=== PATIENT | female | born 1960 | race Caucasian/White ===

== ENCOUNTER 2018-05-29 15:19 | Observation (INO) | payer OTHER ==
[2018-05-29] MEDS ORDERED: DILTIAZEM HCL 5 MG/ML VIAL IV ONE ×3 (15:27→15:47)
[2018-05-29] MEDS ORDERED: ADENOSINE 3 MG/ML DISP.SYRIN IV ONE ×2 (15:36→15:44)
[2018-05-29 15:44] LABS: Hemoglobin 12.9 gm/dL (12.5-16.0); Mean Cell Volume 83.7 fl (78-100); Mean Corpuscular Hemoglobin 27.7 pg (27-31); Mean Corpuscular Hgb Conc 33.1 g/dl (32-36); Mean Platelet Volume 9.5 fl (8-12.5); Neutrophil # 4.1 K/mm3 (1.3-6.0); Neutrophil % 66.4 % (42-75.0); Platelet Count 240 K/mm3 (150-450); Red Blood Count 4.66 M/mm3 (4.2-5.4); Red Cell Distribution Width 13.3 % (11.5-14.0); White Blood Count 6.2 K/mm3 (4.0-10.5)
[2018-05-29] MEDS ORDERED: DILTIAZEM HCL 125 MG in DEXTROSE 5 % IN WATER 100 ML IV PRN ×2 (15:48)
[2018-05-29 15:55] LABS: Prothrombin Time (Patient) 10.6 Seconds (9.0-11.0)
[2018-05-29 15:57] LABS: INR 1.06 INR (0.90-1.10); Partial Thrombolplastin Time 23.8 Seconds (24-32)
--- NOTE | 2018-05-29 15:59 | ERNOTE ---
Syncope ER HPI Stated Complaint: heart issues Time Seen by Provider: 05/29/18 15:26 Source: patient Exam Limitations: no limitations Immunizations: IMMUNIZATION HX Immunizations Up to Date Yes History of Influenza Vaccine Yes Hx Pneumococcal Vaccination No Allergies/Adverse Reactions: Allergies No Known Allergies Allergy (Verified 05/29/18 15:26) Home Medications: HOME MEDICATIONS NK 05/29/18 [Last Taken Unknown] - History of Present Illness Narrative: Patient stated that she went into a rapid heart rate this morning, and while she done this in the past, normally it will cardiovert this time it did not Prior Episodes: Present: multiple episodes today Symptoms prior to episode: Present: none Activity at time of episode: Present: sitting Character of event: Present: no loss of consciousness Location of Injury: Present: none Current Symptoms: Present: shortness of breath Review of Systems - Review of Systems Constitutional: Present: See HPI EYE: Present: no symptoms reported ENT: Present: no symptoms reported Respiratory: Present: shortness of breath Cardiology: Present: See HPI Gastrointestinal/Abdominal: Present: no symptoms reported Genitourinary: Present: no symptoms reported Musculoskeletal: Present: no symptoms reported Skin: Present: no symptoms reported Neurological: Present: no symptoms reported Endocrine: Present: no symptoms reported Hematologic/Lymphatic: Present: no symptoms reported Psych: Present: no symptoms reported Medical History (Last Updated 05/29/18 @ 15:27 by Deanna Weber RN) History of back pain Hx of cervical malignancy Surgical History: Surgical History (Last Updated 05/29/18 @ 15:27 by Deanna Weber RN) Hx of cervical biopsy Family History: Family History (Last Updated 05/29/18 @ 15:27 by Deanna Weber RN) Other No pertinent family history Social History: Preferred Language Nepali Do you have any amish or No cultural preference? Smoking Status Never smoker Alcohol Use none Drug Use none No Social History Section defined Physical Exam - Physical Exam General Appearance: Present: wd/wn, alert, mild distress Head Exam: Present: normal inspection, no evidence of injury Eye Exam: Normal inspection: bilateral, PERRL: bilateral Ears, Nose, Throat: Present: normal ENT inspection, H, normal pharynx Neck: Present: normal inspection, nontender Respiratory: Present: no respiratory distress, normal breath sounds, no accessory muscle use, chest nontender, lungs clear Cardiovascular/Chest: Present: no murmur, normal peripheral pulses, tachycardia Gastrointestinal/Abdominal: Present: normal bowel sounds, nontender, nondistended, soft, no organomegaly Rectal Exam: Present: deferred Back Exam: Present: normal inspection, normal range of motion Extremity Exam: Present: normal inspection, non-tender, no edema, normal range of motion Neurological Exam: Present: alert, oriented, normal mood/affect Skin Exam: Present: normal color, warm/dry Lymphatic Exam: Present: no adenopathy ED Progress - Results and Orders Patient's Lab Results:: I have reviewed the patient's lab results. - Vital Signs Patient's Vital Signs:: I have reviewed the patient's vital signs. Vital Signs: Vital Signs 05/29/18 15:22 05/29/18 15:29 Temperature 37.1 C Pulse Rate 154 H 155 H Respiratory Rate 22 H Blood Pressure 216/112 H 188/106 H O2 Sat by Pulse Oximetry 98 - EKG EKG: other - tachycardia EKG read: Reviewed by me - X-Ray X-Ray #1 X-Ray: chest Interpretation: Reviewed by me - Progress/Reassessment Chief Complaint: Syncopal Episode Progress:: Unchanged Plan - Plan Plan: Despite a variety of medications including 6 and 12 mg of Adenocard and 20 and 25 mg doses of Cardizem IV and a Cardizem drip now running at 20 mg per hour we are only briefly successful to slow down the heart rate enough to reveal the atrial flutter. Patient has no complaint at this time, and while I believe she needs to be cardioverted I would feel more comfortable with an echocardiogram being done. Patient is currently on a heparin drip of 1000 units per hour and was given a 4000 unit bolus. Patient will be transferred to [place] and be admitted with likely cardiology consult there. Departure Clinical Impression: Atrial flutter with rapid ventricular response - Departure Disposition: Short Term Hospital Inpatient Condition: Fair Referrals: Shamar Umana DO [Primary Care Provider] - Critical Care Note - Critical Care Note Total Time (mins): 40 Comments: Adenocard 6 mg and then a second dose at 12 mg and it was a second dose that revealed the underlying atrial flutter with RVR. The Adenocard did not cardiovert the patient back into normal sinus rhythm and she was given 2 doses of Cardizem, first of 20 mg IV second of 25 mg IV and a Cardizem drip was started. We were able to slow the heart rate down with the second dose of Cardizem and a drip was started at 5 mg per hour to begin with. The Cardizem drip was increased incrementally all the way to 20 mg per hour and we are still unable to slow the heart rate down. I discussed the case with Dr. Nugent at [facility]. and patient will be given 600 mg of amiodarone by mouth and transferred to [place]. Patient received a 4000 unit heparin bolus and is currently running heparin at 1000 units per hour.
[2018-05-29] MEDS ORDERED: HEPARIN SODIUM,PORCINE 5,000 UNITS/ML VIAL IV ONE (16:00)
[2018-05-29 16:01] LABS: ALT 34 U/L (19-67); AST 24 U/L (0-48); Albumin * 3.7 gm/dl (3.4-5.0); Alkaline Phosphatase * 392 U/L (50-170); Anion Gap 13.7 mmol/L (6.8-13.8); BUN/Creatinine Ratio 13.7 (9.0-21.6); Blood Urea Nitrogen 7 mg/dL (3-23); Ca. Corrected For Albumin 9.5 mg/dL (8.4-10.2); Calcium * 9.6 mg/dL (7.9-10.9); Carbon Dioxide 26.7 mmol/L (24-32.6); Chloride 105 mmol/L (97-106); Glucose * 117 mg/dL (70-110); Magnesium 1.6 mg/dL (1.2-2.8); Potassium 3.4 mmol/L (3.4-4.6); Sodium 142 mmol/L (132-142); Total Protein 7.1 gm/dL (6.2-8.2); Troponin I Less than 0.017 ng/mL (0.00-0.10)
[2018-05-29] MEDS ORDERED: HEPARIN SODIUM,PORCINE/D5W 25,000 UNITS/500 ML BAG IV PRN (16:01)
[2018-05-29] MEDS ORDERED: AMIODARONE HCL 200 MG TABLET PO ONE (17:30)
[2018-05-29] MEDS ORDERED: DILTIAZEM HCL 240 MG CAP.SR.24H ONE (18:29)
[2018-05-29] MEDS ORDERED: DILTIAZEM HCL 240 MG CAP.SR.24H PO ONE (19:15)
--- NOTE | 2018-05-29 21:38 | HP ---
Chief Complaint - Chief Complaint Date of Service: 05/29/18 Time of Service: 21:21 History of Present Illness: 57 y/o female with PMHx of Degenerative disc disease, Cervical cancer was brought to the ER due to a syncopal episode secondary to tachycardia that started this morning. Peña reports that she went to bed last night completely asymptomatic and woke up feeling well this morning and went about her usual routine without any issues. She then went out side of her apartment building and had a slight coughing spell in reaction to the cold air. Px then reports that shortly after that her heart started racing and she started having palpitations. She denies chest pain but reports dizziness followed by LOC when she went inside the building. When she regained consciousness she found herself in the lobby. Px then called for help and was then brought to the ER. Px reports having a similar episode 5 months ago but her symptoms resolved on their own. She doesn't have a PCP and she hasn't seen a health and wellness advisor for her symptoms. Medical History (Last Updated 05/29/18 @ 15:27 by Deanna Weber RN) History of back pain Hx of cervical malignancy Surgical History: Surgical History (Last Updated 05/29/18 @ 15:27 by Deanna Weber RN) Hx of cervical biopsy Family History: Family History (Last Updated 05/29/18 @ 15:27 by Deanna Weber RN) Other No pertinent family history Social History: Preferred Language Vincentian Do you have any mandaeism or No cultural preference? Smoking Status Never smoker Alcohol Use none Drug Use none No Social History Section defined Peds Patient Hx - Developmental: No Pertinent Hx Peds Patient Hx - Medical: No Pertinent Hx Peds Patient Hx - Cardiac/Respiratory: No Pertinent Hx Peds Patient Hx - Surgical: No Surgical History Patient History - Cancer: Cervical Review Of Systems (GEN) - Review of Systems Generalized/Overall Review: Present: No Symptoms Reported EENTM: Present: No Symptoms Reported Respiratory: Present: No Symptoms Reported Cardiac: Present: Palpitations, Syncope Abdominal: Present: No Symptoms Reported Genitourinary: Present: No Symptoms Reported Musculoskeletal: Present: No Symptoms Reported Neurological: Present: No Symptoms Reported Skin: Present: No Symptoms Reported Endocrine: Present: No Symptoms Reported Immunizations: IMMUNIZATION HX Immunizations Up to Date Yes History of Influenza Vaccine Yes Hx Pneumococcal Vaccination No Allergies/Adverse Reactions: Allergies Allergy/AdvReac Type Severity Reaction Status Date / Time No Known Allergies Allergy Verified 05/29/18 15:26 Home Medications: HOME MEDICATIONS NK 05/29/18 [Last Taken Unknown] Exam - Exam Vital Signs: Vital Signs - Last Taken Temp 37.3 C 05/29/18 17:28 Pulse 115 H 05/29/18 20:51 Resp 19 05/29/18 20:51 BP 123/58 05/29/18 20:51 Pulse Ox 98 05/29/18 20:51 Constitutional: Present: Alert, Oriented x3, Cooperative, Well developed, Well nourished, No distress ENT Exam: Present: normal ENT inspection, hearing grossly normal, pharynx normal, TMs normal Eye Exam: bilateral eye: normal inspection, PERRL, EOMI Neck: Present: non-tender, full range of motion, supple, normal inspection, trachea midline Back Exam: Present: normal inspection, no CVA tenderness, no vertebral tenderness Breasts: Present: Exam deferred Respiratory: Present: chest non-tender, lungs clear, normal breath sounds, no respiratory distress, no accessory muscle use Cardiovascular/Chest: Present: normal peripheral pulses, regular rate, rhythm, no chest tenderness, no gallop, no JVD, systolic murmur Peripheral Pulses: carotid (R): 3+, carotid (L): 3+, femoral (R): 3+, femoral (L): 3+ Abdomen: Present: Normal bowel sounds, soft, nontender, nondistended, no rebound tenderness, no hepatospenomegaly, no masses /Rectal: Present: Exam deferred Extremity: Present: normal range of motion, non-tender, normal inspection, no pedal edema, no calf tenderness Skin Exam: Present: normal color, warm/dry, no cyanosis Lymphatic: Present: no adenopathy Neurologic: Present: materials director II-XII nml as tested, normal cerebellar test, no motor/sensory deficits, alert, normal mood/affect, oriented x 3 Appearance: Present: appropriate appearance, appropriate insight, neat, no memory impairment Eye contact: Present: cooperative, good eye contact, normal speech, avoids eye contact, refused to answer Thoughts: Present: normal thought pattern, no apparent hallucination Diagnostic Studies: Abnormal Lab Results 05/29/18 05/29/18 Range/Units 15:30 15:30 PTT (Tony) 23.8 L (24-32) Seconds Est GFR (Non-Af Amer) 132 H D (60-130) mL/min Random Glucose 117 H (70-110) mg/dL Alkaline Phosphatase 392 H (50-170) U/L Laboratory Results WBC 6.2 K/mm3 (4.0-10.5) 05/29/18 15:30 RBC 4.66 M/mm3 (4.2-5.4) 05/29/18 15:30 Hgb 12.9 gm/dL (12.5-16.0) 05/29/18 15:30 Hct 39.0 % (37.0-47.0) 05/29/18 15:30 MCV 83.7 fl (78-100) 05/29/18 15:30 MCH 27.7 pg (27-31) 05/29/18 15:30 MCHC 33.1 g/dl (32-36) 05/29/18 15:30 RDW 13.3 % (11.5-14.0) 05/29/18 15:30 Plt Count 240 K/mm3 (150-450) 05/29/18 15:30 MPV 9.5 fl (8-12.5) 05/29/18 15:30 Immature Gran % (Auto) 0.30 % (0.001-0.429) 05/29/18 15:30 Immature Gran # (Auto) 0.02 K/mm3 (0.000-0.0310) 05/29/18 15:30 Neutrophils % 66.4 % (42-75.0) 05/29/18 15:30 Lymphocytes % 25.3 % (20-51) 05/29/18 15:30 Monocytes % 7.6 % (0.0-9) 05/29/18 15:30 Eosinophils % 0.2 % (0.0-3.0) 05/29/18 15:30 Basophils % 0.2 % (0.0-1.0) 05/29/18 15:30 Nucleated RBC % 0.0 k/mm3 (0-1) 05/29/18 15:30 Neutrophils # 4.1 K/mm3 (1.3-6.0) 05/29/18 15:30 Lymphocytes # 1.56 k/mm3 (1.5-3.5) 05/29/18 15:30 Monocytes # 0.5 k/mm3 (0.0-1.0) 05/29/18 15:30 Eosinophils # 0.0 k/mm3 (0.0-0.7) 05/29/18 15:30 Absolute Basophils 0.0 k/mm3 (0.0-0.1) 05/29/18 15:30 PT 10.6 Seconds (9.0-11.0) 05/29/18 15:30 INR (Anticoag Therapy) 1.06 INR (0.90-1.10) 05/29/18 15:30 PTT (Garrett) 23.8 Seconds (24-32) L 05/29/18 15:30 Sodium 142 mmol/L (132-142) 05/29/18 15:30 Plasma Sodium 142 mmol/L (130-142) 05/29/18 15:30 Potassium 3.4 mmol/L (3.4-4.6) 05/29/18 15:30 Chloride 105 mmol/L (97-106) 05/29/18 15:30 Carbon Dioxide 26.7 mmol/L (24-32.6) 05/29/18 15:30 Anion Gap 13.7 mmol/L (6.8-13.8) 05/29/18 15:30 BUN 7 mg/dL (3-23) 05/29/18 15:30 Creatinine 0.51 mg/dL (0.4-1.4) 05/29/18 15:30 Est GFR (Non-Af Amer) 132 mL/min (60-130) H D 05/29/18 15:30 BUN/Creatinine Ratio 13.7 (9.0-21.6) 05/29/18 15:30 Random Glucose 117 mg/dL (70-110) H 05/29/18 15:30 Calcium 9.6 mg/dL (7.9-10.9) 05/29/18 15:30 Calcium Adj for Albumin 9.5 mg/dL (8.4-10.2) 05/29/18 15:30 Magnesium 1.6 mg/dL (1.2-2.8) 05/29/18 15:30 Total Bilirubin 1.0 mg/dL (0.0-1.1) 05/29/18 15:30 AST 24 U/L (0-48) 05/29/18 15:30 ALT 34 U/L (19-67) 05/29/18 15:30 Alkaline Phosphatase 392 U/L (50-170) H 05/29/18 15:30 Troponin I Less than 0.017 ng/mL (0.00-0.10) 05/29/18 15:30 Total Protein 7.1 gm/dL (6.2-8.2) 05/29/18 15:30 Albumin 3.7 gm/dl (3.4-5.0) 05/29/18 15:30 Assessment/Plan - Narrative Narrative: Px was treated with IV antiarrhythmics and was placed on IV anticoagulation. She cardioverted to a normal sinus rhythm after treatment by the ER physician, rate control has been achieved with IV meds and PO meds have been initiated. She maintains stable vitals at the moment and is asymptomatic. She will be admitted to observation for close monitoring and cardiology consult in the morning. ENRICO has also been ordered to evaluate for any cardiac abnormalities. - Assessment/Plan (1) Atrial flutter with rapid ventricular response Problem: Acute
--- NOTE | 2018-05-30 11:04 | PN ---
Progess Note - Interim Date: 05/30/18 Time: 10:54 Narrative: 05/30/18 10:55 57 y/o female admitted for Atrial flutter with RVR was evaluated at bedside and was found to be afebrile and in no acute distress. Px reports feeling much better after receiving treatment, her dizziness has subsided and heart is no longer racing. Px also maintains stable vitals and rate control was achieved. 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 Echocardiogram is pending to evaluate EF, cardiac function, and to detect any structural abnormalities. Referral to vocational nurse was requested, and her recommendation was to wait for echo, and refer patient to an senior java web developer for possible ablation, and to prescribed oral anticoagulation upon discharge. We will reevaluate her after the echo for a possible discharge. 05/30/18 11:03
--- NOTE | 2018-05-30 15:12 | DS ---
(1) Atrial flutter with rapid ventricular response Problem: Resolved Description of Stay: 57-year-old female admitted for atrial flutter with rapid ventricular response was evaluated at bedside and was found to be afebrile and in no acute distress. Patient was treated with IV and eventually oral antiarrhythmics, and was placed on a color television console monitor. Follow-up EKG confirms resolution of atrial flutter and total rate control. Cardiology was consulted and echo was performed. Cardiology recommendations were to discharge patient on anticoagulation, beta-natanael for rate control, and refer her to an ground water pump installer. Patient reports feeling better she says her heart is normal longer racing and her dizziness has resolved. Therefore decision to discharge home has been reached and patient will be sent home with the mentioned medication in a referral to an ground water pump installer. She was also instructed to make an appointment with myself since she does not have a PCP. An office follow-up within a week will be performed. Procedures Performed: none Results and Findings: Lab Pending Results 05/29/18 15:30: WBC 6.2, RBC 4.66, Hgb 12.9, Hct 39.0, MCV 83.7, MCH 27.7, MCHC 33.1, RDW 13.3, Plt Count 240, MPV 9.5, Immature Gran % (Auto) 0.30, Immature Gran # (Auto) 0.02, Neutrophils % 66.4, Lymphocytes % 25.3, Monocytes % 7.6, Eosinophils % 0.2, Basophils % 0.2, Nucleated RBC % 0.0, Neutrophils # 4.1, Lymphocytes # 1.56, Monocytes # 0.5, Eosinophils # 0.0, Absolute Basophils 0.0 05/29/18 15:30: PT 10.6, INR (Anticoag Therapy) 1.06, PTT (Tony) 23.8 L 05/29/18 15:30: Sodium 142, Plasma Sodium 142, Potassium 3.4, Chloride 105, Carbon Dioxide 26.7, Anion Gap 13.7, BUN 7, Creatinine 0.51, Est GFR (Non-Af Amer) 132 H D, BUN/Creatinine Ratio 13.7, Random Glucose 117 H, Calcium 9.6, Calcium Adj for Albumin 9.5, Magnesium 1.6, Total Bilirubin 1.0, AST 24, ALT 34, Alkaline Phosphatase 392 H, Troponin I Less than 0.017, Total Protein 7.1, Albumin 3.7 05/29/18 22:01: PTT (Sully) 37.6 H D 05/30/18 00:09: PTT (Tony) 38.2 H 05/30/18 05:15: PTT (Sully) 42.2 H 05/30/18 11:23: PTT (Tony) 46.4 H Discharge Location: Home Disposition: Home self-care Condition: Fair Discharge Activity: Activity as tolerated Discharge Diet: General/regular food Referrals: Lexus Hampton MD [Staff Physician] - Additional Patient Instructions (free text): June 07 at 1:30 PM with at [facility]. Fax records to: [phone]. . [address], [address] [place] [address] Prescriptions (Any new or edited meds): Apixaban [Eliquis] 5 mg PO BID 30 Days #60 tablet Gabapentin 300 mg PO TID 30 Days #90 capsule Metoprolol Tartrate 50 mg PO BID 30 Days #60 tablet Complete Home Medications List: Complete Home Medication List: Apixaban [Eliquis] 5 mg PO BID 30 Days #60 tablet 05/30/18 Gabapentin 300 mg PO TID 30 Days #90 capsule 05/30/18 Metoprolol Tartrate 50 mg PO BID 30 Days #60 tablet 05/30/18
[2018-05-30 16:08] VITALS: BP 140/62
--- NOTE | 2018-05-31 12:11 | ECHO ---
This report is available in the EMR
== END 2018-05-30 16:30 | disposition home or self-care (01) ==
LOC: ER 15:19 → MS 15:19
PROVIDERS: ADMIT Family Medicine; ATTEND Family Medicine
CPT/HCPCS: 36415; 71010; 71045; 80053; 83735; 84484; 85025; 85610; 85730; 93005; 93306; 96365; 96366; 96367; 96375; 96376; 99291; G0378

== ENCOUNTER 2020-01-01 23:10 | Observation (INO) ==
[2020-01-01] MEDS ORDERED: DILTIAZEM HCL 5 MG/ML VIAL IV ONE ×2 (23:19→23:24)
[2020-01-01] MEDS ORDERED: NORMAL SALINE 1,000 ML IV ONE (23:25)
--- NOTE | 2020-01-01 23:27 | ERNOTE ---
Dyspnea - General Presenting Symptoms: shortness of breath Time Seen by Provider: 01/01/20 23:17 Source: patient Exam Limitations: no limitations - Immun/Allergies/Home Medications Immunizations: IMMUNIZATION HX Immunizations Up to Date Yes History of Influenza Vaccine No Hx Pneumococcal Vaccination No Allergies/Adverse Reactions: Allergies No Known Allergies Allergy (Verified 01/01/20 23:18) Home Medications: HOME MEDICATIONS Apixaban [Eliquis] 5 mg PO BID 10/19/18 [Last Taken Unknown] Gabapentin 300 mg PO TID 10/19/18 [Last Taken Unknown] Potassium Chloride [K-Dur] 20 meq PO DAILY #3 tab 11/06/19 [Last Taken Unknown] Furosemide [Lasix] 40 mg PO DAILY 01/02/20 [Last Taken Unknown] Propranolol HCl 80 mg PO TID 01/02/20 [Last Taken Unknown] - History of Present Illness Narrative: States she began to be nauseous yesterday. Today she began vomiting has vomited a number of times throughout the day. She does have chronic A. fib and states she is having palpitations that are fairly usual for her throughout the day today. Upon presentation her heart rate is over 160. Severity: moderate Initiating event: Reports: other - Vomiting and diarrhea Frequency of episodes: Reports: occassional episodes Associated Symptoms-Dyspnea: Reports: palpitations. Denies: fever/chills, chest pain/discomfort Review of Systems - Review of Systems Constitutional: Present: recent illness. Absent: chills ENT: Absent: nose congestion, nasal drainage Respiratory: Present: shortness of breath. Absent: cough Cardiology: Present: palpitations. Absent: chest pain Gastrointestinal/Abdominal: Present: nausea, vomiting, diarrhea Genitourinary: Absent: pain, dysuria Musculoskeletal: Absent: back pain Skin: Absent: rash Neurological: Absent: headache, dizziness/light-headedness Endocrine: Absent: excessive sweating Medical History (Last Reviewed 01/02/20 @ 01:15 by Ananda Alcantar DO) Atrial flutter Hypothyroidism Mild aortic stenosis by prior echocardiogram Pulmonary hypertension Refused influenza vaccine Onset Date: ~06/28/18 History of back pain Hx of cervical malignancy Surgical History: Surgical History (Last Reviewed 01/02/20 @ 01:15 by Ananda Alcantar DO) History of carpal tunnel surgery Hx of cervical biopsy Family History: Family History (Last Reviewed 01/02/20 @ 01:15 by Ananda Alcantar DO) Father Heart disease Other No pertinent family history Social History: (Last Reviewed 01/02/20 @ 01:15 by Ananda Alcantar DO) Social History: Marital status: Highest education level completed: some college, no degree Service: No Tobacco: Smoking Status: Former smoker Alcohol: alcohol intake: never Substance Use: substance use type: does not use Dietary Habits: caffeine: Yes Physical Exam - Physical Exam General Appearance: Present: wd/wn, alert, mild distress Head Exam: Present: normal inspection, no evidence of injury Neck: Present: normal inspection, nontender, supple Respiratory: Present: no respiratory distress, no accessory muscle use, chest nontender, lungs clear Cardiovascular/Chest: Present: no murmur, tachycardia, irregularly irregular Gastrointestinal/Abdominal: Present: normal bowel sounds, nontender, nondistended, soft Back Exam: Present: normal inspection, normal range of motion, no CVA tenderness Extremity Exam: Present: normal inspection, normal range of motion, no edema Neurological Exam: Present: alert, oriented, no motor/sensory deficits Skin Exam: Present: normal color, warm/dry Lymphatic Exam: Present: no adenopathy Progress - Results and Orders Patient's Lab Results:: I have reviewed the patient's lab results. Results and Orders: Laboratory Tests 01/01/20 01/01/20 01/01/20 23:36 23:36 23:36 WBC 8.1 Hgb 10.0 L Hct 32.0 L Plt Count 222 Neutrophils % 76.6 H Sodium 136 Potassium 3.8 Chloride 100 Carbon Dioxide 26.0 BUN 11 D Creatinine 1.06 Random Glucose 120 H Lactic Acid, Venous 1.9 Total Bilirubin 4.3 H AST 24 ALT 13 L Alkaline Phosphatase 269 H Troponin I Less than 0.017 B-Natriuretic Peptide 5894 H - Vital Signs Patient's Vital Signs:: I have reviewed the patient's vital signs. Vital Signs: Vital Signs 01/01/20 23:15 Temperature 38.4 C H Pulse Rate 154 H Respiratory Rate 24 H Blood Pressure 135/86 O2 Sat by Pulse Oximetry 95 - EKG EKG #1 EKG: atrial fibrillation, premature ventricular contraction, nonspecific ST T wave changes EKG read: Interp. by me - X-Ray X-Ray #1 X-Ray: chest Interpretation: Interp. by me X-ray Comments: Cardiomegaly unchanged from previous chest x-ray. No infiltrate or effusion. X-Ray #2 X-Ray: abdomen Interpretation: Interp. by me X-ray Comments: Nonspecific bowel gas pattern. No evidence of obstruction, no free air, no air- fluid levels. - Progress/Reassessment Chief Complaint: Dyspnea Progress Note-Subjective: 01/02/20 01:[address] Camp he agrees with observation admission for diuresis and Cardizem drip. Departure Clinical Impression: Atrial fibrillation with rapid ventricular response CHF (congestive heart failure) Qualifiers: Heart failure type: high output Qualified Code(s): I50.83 - High output heart failure - Departure Disposition: Still a patient Condition: Good
[2020-01-01] MEDS ORDERED: DILTIAZEM HCL 125 MG in DEXTROSE 5 % IN WATER 100 ML IV PRN ×2 (23:28)
[2020-01-01 23:46] LABS: Mean Cell Volume 76.9 fl (78-100); Mean Corpuscular Hgb Conc 31.3 g/dl (32-36); Mean Platelet Volume 9.7 fl (8-12.5); Neutrophil # 6.2 K/mm3 (1.3-6.0); Neutrophil % 76.6 % (42-75.0); Platelet Count 222 K/mm3 (150-450); Red Blood Count 4.16 M/mm3 (4.2-5.4); Red Cell Distribution Width 19.4 % (11.5-14.0); White Blood Count 8.1 K/mm3 (4.0-10.5)
[2020-01-02 00:05] LABS: Troponin I Less than 0.017 ng/mL (0.00-0.10)
[2020-01-02 00:07] LABS: ALT 13 U/L (19-67); AST 24 U/L (0-48); Albumin * 3.4 gm/dl (3.4-5.0); Alkaline Phosphatase * 269 U/L (50-170); Anion Gap 13.8 mmol/L (6.8-13.8); BNP * 5894 pg/mL (5-205); BUN/Creatinine Ratio 10.4 (9.0-21.6); Bilirubin, Total 4.3 mg/dL (0.0-1.1); Blood Urea Nitrogen 11 mg/dL (3-23); Ca. Corrected For Albumin 8.3 mg/dL (8.4-10.2); Calcium * 8.1 mg/dL (7.9-10.9); Chloride 100 mmol/L (97-106); Glucose * 120 mg/dL (70-110); Potassium 3.8 mmol/L (3.4-4.6); Sodium 136 mmol/L (132-142); Total Protein 7.2 gm/dL (6.2-8.2)
[2020-01-02] MEDS ORDERED: DILTIAZEM HCL 125 MG in NORMAL SALINE 100 ML IV PRN (00:15)
[2020-01-02] MEDS ORDERED: FUROSEMIDE 10 MG/ML VIAL IV ONE (01:04)
[2020-01-02] MEDS ORDERED: FUROSEMIDE 40 MG TABLET PO SCH ×2 (09:00→12:00)
[2020-01-02] MEDS: DILTIAZEM HCL 240 MG CAP.SR.24H PO SCH (09:13)
[2020-01-02] MEDS: APIXABAN 5 MG TABLET PO SCH ×2 (09:13→20:06)
[2020-01-02] MEDS: POTASSIUM CHLORIDE 20 MEQ TABLET.SA PO SCH (09:14)
[2020-01-02] MEDS: GABAPENTIN 300 MG CAPSULE PO SCH ×3 (09:15→17:24)
[2020-01-02] MEDS: FERROUS SULFATE 325 MG TABLET PO SCH (09:16)
[2020-01-02 09:39] LABS: Albumin * 3.1 gm/dl (3.4-5.0); Anion Gap 11.1 mmol/L (6.8-13.8); BUN/Creatinine Ratio 11.8 (9.0-21.6); Bilirubin, Total 3.4 mg/dL (0.0-1.1); Ca. Corrected For Albumin 8.8 mg/dL (8.4-10.2); Calcium * 8.4 mg/dL (7.9-10.9); Carbon Dioxide 27.4 mmol/L (24-32.6); Potassium 3.5 mmol/L (3.4-4.6); Total Protein 6.7 gm/dL (6.2-8.2)
[2020-01-02 09:41] LABS: Iron 17 mcg/dL (35-120); Transferrin Sat. (% Sat.) 5 % (15-55)
[2020-01-02 09:55] LABS: Hematocrit 30.3 % (37.0-47.0); Hemoglobin 9.5 gm/dL (12.5-16.0); Mean Cell Volume 76.3 fl (78-100); Mean Corpuscular Hemoglobin 23.9 pg (27-31); Mean Corpuscular Hgb Conc 31.4 g/dl (32-36); Neutrophil # 3.7 K/mm3 (1.3-6.0); Neutrophil % 66.4 % (42-75.0); Platelet Count 181 K/mm3 (150-450); Red Blood Count 3.97 M/mm3 (4.2-5.4); Red Cell Distribution Width 19.1 % (11.5-14.0); White Blood Count 5.6 K/mm3 (4.0-10.5)
[2020-01-02 10:11] LABS: Urine Bilirubin Negative (NEGATIVE); Urine Ketone Negative (NEGATIVE); Urine Nitrite Negative (NEGATIVE); Urine Protein Negative (NEGATIVE)
[2020-01-02 10:20] LABS: Urine Appearance Clear (CLEAR); Urine Bacteria None Seen; Urine Blood 5 /ul (NEGATIVE); Urine Color Yellow; Urine RBC 0-5 /hpf (0-5); Urine WBC 0-5 /hpf (0-5)
--- NOTE | 2020-01-02 11:43 | HP ---
Chief Complaint - Chief Complaint Date of Service: 01/02/20 Time of Service: 08:15 Chief Complaint: Nausea with flulike symptoms, weakness History of Present Illness: Samantha Luong is a 59-year-old female presents with nausea and f lulike symptoms to the emergency room. The work-up found her to be in congestive heart failure and atrial fibrillation with rapid ventricular response with rates in the 160s. She was treated with IV Cardizem in ER which slowed her heart rate down into the 90s and lower 100s but she continues in atrial fibrillation which is chronic for her. She takes Eliquis daily to prophylax clots. She has a history of iron deficiency. She denies abdominal pain. Her admission liver enzymes however show an elevated alkaline phosphatase of 268 and a bilirubin of 4.6. Urinalysis shows 2+ urobilinogen. The CBC shows hemoglobin is 10 g with an MCV of 76% and a RDW that is elevated. This is consistent with her previous diagnosis of iron deficiency anemia. She is not taking iron supplements. This morning she is feeling quite a lot better and feels that her heart is no longer racing and pounding. Her nausea is better. She ate breakfast this morning before I saw her liver enzymes. I have ordered an ultrasound to be done and they plan to do that later this afternoon some 6 hours after she ate last. Her heart rate has stayed down in the upper 90s and lower 100s. Her blood pressure systolic was 100 this morning. She had fever on admission to ER and has had low-grade temperature elevations here in the 37.7 to 37.9 degree range. The nidus of the infection if there is 1 is unknown at this time. Urinalysis other than urobilinogen was normal and no culture was set up. Blood culture was drawn in the emergency room but will be a couple of days before we have preliminary results. She has no respiratory symptoms. On exam today her neck veins are still distended and her HJR is positive at 90 degrees and there is still some pitting edema in the pretibial areas bilaterally. I will diurese her some more today with IV furosemide. I am changing her to oral Cardizem and away from propranolol. She will be moved back to general medical floor room this afternoon and placed on telemetry. I will be keeping her another night. Antibiotics will not be started unless we find a focus of infection. And auscultation of the heart and lungs I do not hear any murmurs or rubs. She does have bibasilar rales. Medical History (Last Reviewed 01/02/20 @ 01:15 by Ananda Alcantar DO) Atrial flutter Hypothyroidism Mild aortic stenosis by prior echocardiogram Pulmonary hypertension Refused influenza vaccine Onset Date: ~06/28/18 History of back pain Hx of cervical malignancy Surgical History: Surgical History (Last Reviewed 01/02/20 @ 01:15 by Ananda Alcantar DO) History of carpal tunnel surgery Hx of cervical biopsy Family History: Family History (Last Reviewed 01/02/20 @ 01:15 by Ananda Alcantar DO) Father Heart disease Other No pertinent family history Social History: (Last Reviewed 01/02/20 @ 01:15 by Ananda Alcantar DO) Social History: Marital status: Highest education level completed: some college, no degree Service: No Tobacco: Smoking Status: Former smoker Alcohol: alcohol intake: never Substance Use: substance use type: does not use Dietary Habits: caffeine: Yes Review Of Systems (GEN) - Review of Systems Generalized/Overall Review: Present: Weakness, Chills, Fever, Malaise EENTM: Present: No Symptoms Reported Respiratory: Present: Shortness of Breath Cardiac: Present: Palpitations Abdominal: Present: No Symptoms Reported Genitourinary: Present: No Symptoms Reported Musculoskeletal: Present: No Symptoms Reported Neurological: Present: No Symptoms Reported Skin: Present: No Symptoms Reported Endocrine: Present: No Symptoms Reported Immunizations: IMMUNIZATION HX Immunizations Up to Date Yes History of Influenza Vaccine No Hx Pneumococcal Vaccination No Allergies/Adverse Reactions: Allergies Allergy/AdvReac Type Severity Reaction Status Date / Time No Known Allergies Allergy Verified 01/01/20 23:18 Home Medications: HOME MEDICATIONS Apixaban [Eliquis] 5 mg PO BID 10/19/18 [Last Taken Unknown] Gabapentin 300 mg PO TID 10/19/18 [Last Taken Unknown] Potassium Chloride [K-Dur] 20 meq PO DAILY #3 tab 11/06/19 [Last Taken Unknown] Furosemide [Lasix] 40 mg PO DAILY 01/02/20 [Last Taken Unknown] Propranolol HCl 80 mg PO TID 01/02/20 [Last Taken Unknown] Exam - Exam Vital Signs: Vital Signs - Last Taken Temp 37.8 C 01/02/20 10:54 Pulse 82 01/02/20 10:54 Resp 19 01/02/20 10:54 BP 100/60 01/02/20 10:54 Pulse Ox 96 01/02/20 10:54 Constitutional: Present: Alert, Oriented x3, Cooperative, Well developed, Well n ourished, Mild distress ENT Exam: Present: normal ENT inspection, hearing grossly normal, pharynx normal, TMs normal Eye Exam: bilateral eye: normal inspection, PERRL, EOMI Neck: Present: non-tender, full range of motion, supple, normal inspection Back Exam: Present: normal inspection, no CVA tenderness, no vertebral tenderness Breasts: Present: Exam deferred Respiratory: Present: decreased breath sounds, rales - Bibasilar, expiration (prolonged) Cardiovascular/Chest: Present: normal peripheral pulses, no chest tenderness, JVD, irregularly irregular, edema Peripheral Pulses: carotid (R): 2+, carotid (L): 2+, radial (R): 2+, radial (L): 2+ Abdomen: Present: Normal bowel sounds, soft, nontender, nondistended, no rebound tenderness, no hepatospenomegaly, no masses, negative Ortega sign /Rectal: Present: Exam deferred Extremity: Present: normal range of motion, non-tender, lower extremity edema, pedal edema Skin Exam: Present: pallor Lymphatic: Present: no adenopathy Neurologic: Present: chief 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 II-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 nml as tested, normal cerebellar test, no motor/sensory deficits, alert, normal mood/affect, oriented x 3, motor weakness Appearance: Present: appropriate appearance, appropriate insight, neat, no memory impairment Eye contact: Present: cooperative, good eye contact, normal speech, avoids eye contact Thoughts: Present: normal thought pattern, no apparent hallucination Diagnostic Studies: Abnormal Lab Results 01/01/20 01/01/20 01/02/20 Range/Units 23:36 23:36 09:00 RBC 4.16 L 3.97 L (4.2-5.4) M/mm3 Hgb 10.0 L 9.5 L (12.5-16.0) gm/dL Hct 32.0 L 30.3 L (37.0-47.0) % MCV 76.9 L 76.3 L (78-100) fl MCH 24.0 L 23.9 L (27-31) pg MCHC 31.3 L 31.4 L (32-36) g/dl RDW 19.4 H 19.1 H (11.5-14.0) % Neutrophils % 76.6 H (42-75.0) % Lymphocytes % 9.2 L 18.2 L (20-51) % Monocytes % 13.4 H 14.6 H (0.0-9) % Neutrophils # 6.2 H (1.3-6.0) K/mm3 Lymphocytes # 0.74 L 1.02 L (1.5-3.5) k/mm3 Monocytes # 1.1 H (0.0-1.0) k/mm3 Percent Retic 1.9 H (0.4-1.8) % Immature Retic Fraction 35.6 H (3.0-15.9) % Retic Hgb Content 24.3 L (29-35) pg Est GFR (Non-Af Amer) 56 L (60-130) mL/min Random Glucose 120 H (70-110) mg/dL Calcium Adj for Albumin 8.3 L (8.4-10.2) mg/dL Iron (35-120) mcg/dL Transferrin % Sat (15-55) % Total Bilirubin 4.3 H (0.0-1.1) mg/dL ALT 13 L (19-67) U/L Alkaline Phosphatase 269 H (50-170) U/L B-Natriuretic Peptide 5894 H (5-205) pg/mL Albumin (3.4-5.0) gm/dl Urine Blood (NEGATIVE) /ul Urine Urobilinogen (NORMAL) EU/dl 01/02/20 01/02/20 01/02/20 Range/Units 09:00 09:00 10:04 RBC (4.2-5.4) M/mm3 Hgb (12.5-16.0) gm/dL Hct (37.0-47.0) % MCV (78-100) fl MCH (27-31) pg MCHC (32-36) g/dl RDW (11.5-14.0) % Neutrophils % (42-75.0) % Lymphocytes % (20-51) % Monocytes % (0.0-9) % Neutrophils # (1.3-6.0) K/mm3 Lymphocytes # (1.5-3.5) k/mm3 Monocytes # (0.0-1.0) k/mm3 Percent Retic (0.4-1.8) % Immature Retic Fraction (3.0-15.9) % Retic Hgb Content (29-35) pg Est GFR (Non-Af Amer) 59 L (60-130) mL/min Random Glucose (70-110) mg/dL Calcium Adj for Albumin (8.4-10.2) mg/dL Iron 17 L (35-120) mcg/dL Transferrin % Sat 5 L (15-55) % Total Bilirubin 3.4 H (0.0-1.1) mg/dL ALT 11 L (19-67) U/L Alkaline Phosphatase 230 H (50-170) U/L B-Natriuretic Peptide (5-205) pg/mL Albumin 3.1 L (3.4-5.0) gm/dl Urine Blood 5 H (NEGATIVE) /ul Urine Urobilinogen 2.0 H (NORMAL) EU/dl Laboratory Results WBC 5.6 K/mm3 (4.0-10.5) D 01/02/20 09:00 RBC 3.97 M/mm3 (4.2-5.4) L 01/02/20 09:00 Hgb 9.5 gm/dL (12.5-16.0) L 01/02/20 09:00 Hct 30.3 % (37.0-47.0) L 01/02/20 09:00 MCV 76.3 fl (78-100) L 01/02/20 09:00 MCH 23.9 pg (27-31) L 01/02/20 09:00 MCHC 31.4 g/dl (32-36) L 01/02/20 09:00 RDW 19.1 % (11.5-14.0) H 01/02/20 09:00 Plt Count 181 K/mm3 (150-450) 01/02/20 09:00 MPV 10.0 fl (8-12.5) 01/02/20 09:00 Immature Gran % (Auto) 0.40 % (0.001-0.429) 01/02/20 09:00 Immature Gran # (Auto) 0.02 K/mm3 (0.000-0.0310) 01/02/20 09:00 Neutrophils % 66.4 % (42-75.0) 01/02/20 09:00 Lymphocytes % 18.2 % (20-51) L 01/02/20 09:00 Monocytes % 14.6 % (0.0-9) H 01/02/20 09:00 Eosinophils % 0.0 % (0.0-3.0) 01/02/20 09:00 Basophils % 0.4 % (0.0-1.0) 01/02/20 09:00 Nucleated RBC % 0.0 k/mm3 (0-1) 01/02/20 09:00 Neutrophils # 3.7 K/mm3 (1.3-6.0) 01/02/20 09:00 Lymphocytes # 1.02 k/mm3 (1.5-3.5) L 01/02/20 09:00 Monocytes # 0.8 k/mm3 (0.0-1.0) 01/02/20 09:00 Eosinophils # 0.0 k/mm3 (0.0-0.7) 01/02/20 09:00 Absolute Basophils 0.0 k/mm3 (0.0-0.1) 01/02/20 09:00 Absolute Retic 0.0738 01/02/20 09:00 Percent Retic 1.9 % (0.4-1.8) H 01/02/20 09:00 Immature Retic Fraction 35.6 % (3.0-15.9) H 01/02/20 09:00 Retic Hgb Content 24.3 pg (29-35) L 01/02/20 09:00 Sodium 135 mmol/L (132-142) 01/02/20 09:00 Plasma Sodium 135 mmol/L (130-142) 01/02/20 09:00 Potassium 3.5 mmol/L (3.4-4.6) 01/02/20 09:00 Chloride 100 mmol/L (97-106) 01/02/20 09:00 Carbon Dioxide 27.4 mmol/L (24-32.6) 01/02/20 09:00 Anion Gap 11.1 mmol/L (6.8-13.8) 01/02/20 09:00 BUN 12 mg/dL (3-23) 01/02/20 09:00 Creatinine 1.02 mg/dL (0.4-1.4) 01/02/20 09:00 Est GFR (Non-Af Amer) 59 mL/min (60-130) L 01/02/20 09:00 BUN/Creatinine Ratio 11.8 (9.0-21.6) 01/02/20 09:00 Random Glucose 104 mg/dL (70-110) 01/02/20 09:00 Lactic Acid, Venous 1.9 mmol/L (0.4-2.0) 01/01/20 23:36 Calcium 8.4 mg/dL (7.9-10.9) 01/02/20 09:00 Calcium Adj for Albumin 8.8 mg/dL (8.4-10.2) 01/02/20 09:00 Iron 17 mcg/dL (35-120) L 01/02/20 09:00 TIBC 376 mcg/dL (260-445) 01/02/20 09:00 Transferrin % Sat 5 % (15-55) L 01/02/20 09:00 Ferritin 41 ng/mL (8-252) 01/02/20 09:00 Total Bilirubin 3.4 mg/dL (0.0-1.1) H 01/02/20 09:00 AST 20 U/L (0-48) 01/02/20 09:00 ALT 11 U/L (19-67) L 01/02/20 09:00 Alkaline Phosphatase 230 U/L (50-170) H 01/02/20 09:00 Troponin I Less than 0.017 ng/mL (0.00-0.10) 01/01/20 23:36 B-Natriuretic Peptide 5894 pg/mL (5-205) H 01/01/20 23:36 Total Protein 6.7 gm/dL (6.2-8.2) 01/02/20 09:00 Albumin 3.1 gm/dl (3.4-5.0) L 01/02/20 09:00 Urine Color Yellow 01/02/20 10:04 Urine Appearance Clear (CLEAR) 01/02/20 10:04 Urine pH 6.0 pH (5.0-7.0) 01/02/20 10:04 Ur Specific [place] 1.020 SP.GR. (1.005-1.010) 01/02/20 10:04 Urine Protein Negative mg/dL (NEGATIVE) 01/02/20 10:04 Urine Glucose (UA) Negative mg/dL (NEGATIVE) 01/02/20 10:04 Urine Ketones Negative mg/dL (NEGATIVE) 01/02/20 10:04 Urine Blood 5 /ul (NEGATIVE) H 01/02/20 10:04 Urine Nitrate Negative (NEGATIVE) 01/02/20 10:04 Urine Bilirubin Negative mg/dl (NEGATIVE) 01/02/20 10:04 Urine Urobilinogen 2.0 EU/dl (NORMAL) H 01/02/20 10:04 Ur Leukocyte Esterase Negative /ul (NEGATIVE) 01/02/20 10:04 Urine RBC 0-5 /hpf (0-5) 01/02/20 10:04 Urine WBC 0-5 /hpf (0-5) 01/02/20 10:04 Ur Epithelial Cells 0-5 /hpf (0-5) 01/02/20 10:04 Urine Bacteria None seen (NONE) 01/02/20 10:04 SARS-CoV-2 (PCR) Not detected (ND) 01/02/20 01:30 Assessment/Plan - Narrative Narrative: 1. Diurese 2. DC IV Cardizem drip and start p.o. Cardizem 3. Abdominal ultrasound to evaluate the cause of her elevated bilirubin and alkaline phosphatase. No transaminases are normal. 4. She had an echocardiogram by Dr. Reid about a month ago with an ejection fraction of 35 to 40% 5. Repeat EKG this morning shows atrial fibrillation but with controlled ventricular response rate and no evidence of ischemia 6. Start iron replacement therapy after iron studies are drawn. 7. Consider general surgical consultation. - Assessment/Plan (1) Atrial fibrillation with rapid ventricular response Problem: Acute (2) CHF (congestive heart failure) Problem: Acute Qualifiers: Heart failure type: high output Qualified Code(s): I50.83 - High output heart failure (3) Abnormal liver function tests Problem: Acute (4) Iron deficiency anemia Problem: Chronic Qualifiers: Iron deficiency anemia type: unspecified iron deficiency Qualified Code(s): D50.9 - Iron deficiency anemia, unspecified (5) Febrile illness Problem: Acute
[2020-01-02] MEDS ORDERED: ACETAMINOPHEN 500 MG TABLET PO PRN (21:57)
[2020-01-03 06:19] LABS: Hematocrit 28.9 % (37.0-47.0); Hemoglobin 8.9 gm/dL (12.5-16.0); Mean Cell Volume 75.7 fl (78-100); Mean Corpuscular Hemoglobin 23.3 pg (27-31); Mean Corpuscular Hgb Conc 30.8 g/dl (32-36); Mean Platelet Volume 9.2 fl (8-12.5); Neutrophil % 55.4 % (42-75.0); Platelet Count 175 K/mm3 (150-450); Red Blood Count 3.82 M/mm3 (4.2-5.4); Red Cell Distribution Width 19.5 % (11.5-14.0); White Blood Count 7.3 K/mm3 (4.0-10.5)
[2020-01-03 06:36] LABS: Albumin * 3.2 gm/dl (3.4-5.0); Anion Gap 9.9 mmol/L (6.8-13.8); BUN/Creatinine Ratio 17.3 (9.0-21.6); Bilirubin, Total 2.4 mg/dL (0.0-1.1); Ca. Corrected For Albumin 8.7 mg/dL (8.4-10.2); Calcium * 8.4 mg/dL (7.9-10.9); Carbon Dioxide 27.4 mmol/L (24-32.6); Potassium 3.3 mmol/L (3.4-4.6); Total Protein 6.7 gm/dL (6.2-8.2)
[2020-01-03] MEDS: APIXABAN 5 MG TABLET PO SCH (09:20)
[2020-01-03] MEDS: GABAPENTIN 300 MG CAPSULE PO SCH ×3 (09:20→15:06)
[2020-01-03] MEDS: POTASSIUM CHLORIDE 20 MEQ TABLET.SA PO SCH (09:21)
[2020-01-03] MEDS: FERROUS SULFATE 325 MG TABLET PO SCH (09:21)
[2020-01-03] MEDS: DILTIAZEM HCL 240 MG CAP.SR.24H PO SCH (09:21)
--- NOTE | 2020-01-03 12:27 | DS ---
(1) Atrial fibrillation with rapid ventricular response Problem: Acute (2) CHF (congestive heart failure) Problem: Acute Qualifiers: Heart failure type: high output Qualified Code(s): I50.83 - High output heart failure (3) Abnormal liver function tests Problem: Acute (4) Iron deficiency anemia Problem: Chronic Qualifiers: Iron deficiency anemia type: unspecified iron deficiency Qualified Code(s): D50.9 - Iron deficiency anemia, unspecified (5) Febrile illness Problem: Acute (6) Ascites Problem: Acute Date of Discharge:: 01/03/20 Hospital Course: Samantha Luong is a 59-year-old female admitted to ER with congestive heart failure. She has been diuresed and is doing much better and is no longer fluid overloaded. She has a history of ischemic cardiomyopathy. She had a echo about a month ago showing EF of 35 to 40%. While here her labs showed bilirubin elevated at 4.5 and the alkaline phosphatase was high at 286. Her CBC showed initial hemoglobin of 10 g with an MCV of 75 and an elevated RDW. These were all suggestive of iron deficiency anemia which she has had most of her life. However she is not on treatment for that. I started her on iron replacement therapy. Her hemoglobin has continued to drop and the hemoglobin has dropped yesterday to 9.2 g and today is 8.6 g. She is asymptomatic with his anemia. Because of the abnormal liver function studies I did an ultrasound of the abdomen which shows a mild to moderate amount of ascites, thickened gallbladder wall with sludge in the neck. The common bile duct, hepatic duct were unremarkable. The urinalysis revealed 2+ urobilinogen as well. Her transaminases are normal. She states she drank some alcohol in her youth and younger years but has not for many years. The ultrasound shows the liver to be smaller and not uniform in echogenicity. This is suggestive of cirrhosis and given her social history I would favor more MCKAY. Further evaluation will need to be done on an outpatient basis. She will be discharged to home. She will need weekly hemograms. I will arrange for a CT of the abdomen with contrast. And I will notify her primary care provider Heeln Flannery. Procedures Performed: none Results and Findings: Pending Mircobiology Results 01/02/20 00:06 Blood Blood Culture - Preliminary NO GROWTH 24 HOURS 01/01/20 23:36 Blood Blood Culture - Preliminary NO GROWTH 24 HOURS Lab Pending Results 01/01/20 23:36: WBC 8.1, RBC 4.16 L, Hgb 10.0 L, Hct 32.0 L, MCV 76.9 L, MCH 24.0 L, MCHC 31.3 L, RDW 19.4 H, Plt Count 222, MPV 9.7, Immature Gran % (Auto) 0.40, Immature Gran # (Auto) 0.03, Neutrophils % 76.6 H, Lymphocytes % 9.2 L, Monocytes % 13.4 H, Eosinophils % 0.0, Basophils % 0.4, Nucleated RBC % 0.0, Neutrophils # 6.2 H, Lymphocytes # 0.74 L, Monocytes # 1.1 H, Eosinophils # 0.0, Absolute Basophils 0.0 01/01/20 23:36: Sodium 136, Plasma Sodium 136, Potassium 3.8, Chloride 100, Carbon Dioxide 26.0, Anion Gap 13.8, BUN 11 D, Creatinine 1.06, Est GFR (Non-Af Amer) 56 L, BUN/Creatinine Ratio 10.4, Random Glucose 120 H, Calcium 8.1, Calcium Adj for Albumin 8.3 L, Total Bilirubin 4.3 H, AST 24, ALT 13 L, Alkaline Phosphatase 269 H, Troponin I Less than 0.017, B-Natriuretic Peptide 5894 H, Total Protein 7.2, Albumin 3.4 01/01/20 23:36: Lactic Acid, Venous 1.9 01/02/20 01:30: SARS-CoV-2 (PCR) Not detected 01/02/20 09:00: WBC 5.6 D, RBC 3.97 L, Hgb 9.5 L, Hct 30.3 L, MCV 76.3 L, MCH 23.9 L, MCHC 31.4 L, RDW 19.1 H, Plt Count 181, MPV 10.0, Immature Gran % (Auto) 0.40, Immature Gran # (Auto) 0.02, Neutrophils % 66.4, Lymphocytes % 18.2 L, Monocytes % 14.6 H, Eosinophils % 0.0, Basophils % 0.4, Nucleated RBC % 0.0, Neutrophils # 3.7, Lymphocytes # 1.02 L, Monocytes # 0.8, Eosinophils # 0.0, Absolute Basophils 0.0, Absolute Retic 0.0738, Percent Retic 1.9 H, Immature Retic Fraction 35.6 H, Retic Hgb Content 24.3 L 01/02/20 09:00: Sodium 135, Plasma Sodium 135, Potassium 3.5, Chloride 100, Carbon Dioxide 27.4, Anion Gap 11.1, BUN 12, Creatinine 1.02, Est GFR (Non-Af Amer) 59 L, BUN/Creatinine Ratio 11.8, Random Glucose 104, Calcium 8.4, Calcium Adj for Albumin 8.8, Ferritin 41, Total Bilirubin 3.4 H, AST 20, ALT 11 L, Alkaline Phosphatase 230 H, Total Protein 6.7, Albumin 3.1 L 01/02/20 09:00: Iron 17 L, TIBC 376, Transferrin % Sat 5 L 01/02/20 09:00: Troponin I Less than 0.017 01/02/20 10:04: Urine Color Yellow, Urine Appearance Clear, Urine pH 6.0, Ur Specific [place] 1.020, Urine Protein Negative, Urine Glucose (UA) Negative, Urine Ketones Negative, Urine Blood 5 H, Urine Nitrate Negative, Urine Bilirubin Negative, Urine Urobilinogen 2.0 H, Ur Leukocyte Esterase Negative, Urine RBC 0- 5, Urine WBC 0-5, Ur Epithelial Cells 0-5, Urine Bacteria None seen 01/03/20 06:10: WBC 7.3 D, RBC 3.82 L, Hgb 8.9 L, Hct 28.9 L, MCV 75.7 L, MCH 23.3 L, MCHC 30.8 L, RDW 19.5 H, Plt Count 175, MPV 9.2, Immature Gran % (Auto) 0.30, Immature Gran # (Auto) 0.02, Neutrophils % 55.4, Lymphocytes % 24.8, Monocytes % 18.7 H, Eosinophils % 0.4, Basophils % 0.4, Nucleated RBC % 0.0, Neutrophils # 4.0, Lymphocytes # 1.80, Monocytes # 1.4 H, Eosinophils # 0.0, Absolute Basophils 0.0 01/03/20 06:10: Sodium 133, Plasma Sodium 133, Potassium 3.3 L, Chloride 99, Carbon Dioxide 27.4, Anion Gap 9.9, BUN 17, Creatinine 0.98, Est GFR (Non-Af Amer) 62, BUN/Creatinine Ratio 17.3, Random Glucose 102, Calcium 8.4, Calcium Adj for Albumin 8.7, Total Bilirubin 2.4 H, AST 21, ALT 13 L, Alkaline Phosphatase 227 H, Total Protein 6.7, Albumin 3.2 L Discharge Location: Home Disposition: Home self-care Condition: Fair Face to Face Encounter completed per [facility] Guidelines: No Discharge Activity: Activity as tolerated Discharge Diet: General/regular food Referrals: Vanessa Flannery APRN [Primary Care Provider] - Complete Home Medications List: Complete Home Medication List: Apixaban [Eliquis] 5 mg PO BID 10/19/18 Gabapentin 300 mg PO TID 10/19/18 Potassium Chloride [K-Dur] 20 meq PO DAILY #3 tab 11/06/19 Furosemide [Lasix] 40 mg PO DAILY 01/02/20 Propranolol HCl 80 mg PO TID 01/02/20 Acetaminophen [Tylenol] 500 mg PO Q4H PRN tablet 01/03/20 Diltiazem HCl [Cardizem Cd] 240 mg PO Q24H #30 cap.sr.24h 01/03/20 Ferrous Sulfate 325 mg PO DAILY #100 tab 01/03/20
[2020-01-03 13:05] VITALS: BP 110/67
== END 2020-01-03 13:45 | disposition home or self-care (01) | DRG 292 ==
LOC: SCU 23:10 → ER 23:10 → SCU 01-02 02:38 → MS 01-02 11:48
PROVIDERS: ADMIT Family Medicine; ATTEND Family Medicine
CPT/HCPCS: 36415; 71010; 71045; 74019; 74020; 76700; 80053; 81001; 82728; 83519; 83540; 83550; 83605; 83880; 84484; 85025; 85045; 87040; 93005; 94760; 96365; 96366; 96375; 99285; C9803; G0378

== ENCOUNTER 2020-09-03 18:57 | Inpatient (IN) ==
[2020-09-03] MEDS ORDERED: DILTIAZEM HCL 5 MG/ML VIAL IV ONE (19:25)
[2020-09-03] MEDS ORDERED: PIPERACILLIN SODIUM/TAZOBACTAM 3.375 GM in DEXTROSE 5 % IN WATER 100 ML IV ONE ×2 (19:25)
--- NOTE | 2020-09-03 19:37 | ERNOTE ---
<Jeramy Martinez - Last Filed: 09/03/20 19:30> Integumentary HPI - Narrative Date of Service: 09/03/20 - General Presenting Symptoms: other - lleg pain Time Seen by Provider: 09/03/20 19:16 Source: patient Exam Limitations: clinical condition - Immun/Allergies/Home Medications Immunizations: IMMUNIZATION HX Immunizations Up to Date No History of Influenza Vaccine No Hx Pneumococcal Vaccination No Allergies/Adverse Reactions: Allergies Allergy/AdvReac Type Severity Reaction Status Date / Time No Known Allergies Allergy Verified 09/03/20 19:14 Home Medications: HOME MEDICATIONS Apixaban [Eliquis] 5 mg PO BID 10/19/18 [Last Taken Unknown] Gabapentin 300 mg PO TID 10/19/18 [Last Taken Unknown] Furosemide [Lasix] 20 mg PO DAILY 01/02/20 [Last Taken Unknown] Acetaminophen [Tylenol] 500 mg PO Q4H PRN tab 01/03/20 [Last Taken Unknown] Propafenone HCl [Propafenone HCl ER] 325 mg PO DAILY 07/24/20 [Last Taken Unknown] Ferrous Sulfate 650 mg PO DAILY 09/03/20 [Last Taken Unknown] Loratadine 10 mg PO DAILY 09/03/20 [Last Taken Unknown] Potassium Chloride [K-Dur] 40 meq PO DAILY 09/03/20 [Last Taken Unknown] Propranolol HCl [Inderal LA] 160 mg PO BID 09/03/20 [Last Taken Unknown] - History of Present Illness Narrative: patient presents to the ED for pain in her legs. She arrives by EMS. She denies acute worsening. She apparently has had leg problems for a while, gradually worsening. Called EMS, EMS noted a fib RVR. She denies CP or SOB. pain in both legs that she will not rate for me. No trauma. No abdominal pain. When I ask her questions she will look away from me and at times not answer making Hx difficult. Location: Reports: other - bilateral LE Quality: Reports: painful Severity: other - will not rate for me Exposure: Reports: no cause identified Modifying Factors - (Improves): Reports: nothing Modifying Factors - (Worsens): Reports: nothing Associated Symptoms: Denies: hives Prior Treatment: Denies: recently seen, currently on antibiotics Review of Systems - Narrative Narrative: unable to obtain in entirety d/t patient condition Medical History (Last Reviewed 09/03/20 @ 19:33 by Jeramy Martinez MD) Atrial flutter Congestive heart failure (CHF) Hypothyroidism Mild aortic stenosis by prior echocardiogram Pulmonary hypertension Refused influenza vaccine Onset Date: ~06/28/18 History of back pain Hx of cervical malignancy Surgical History: Surgical History (Last Reviewed 09/03/20 @ 19:33 by Jeramy Martinez MD) History of carpal tunnel surgery Hx of cervical biopsy Family History: Family History (Last Reviewed 09/03/20 @ 19:33 by Jeramy Martinez MD) Father Heart disease Other No pertinent family history Social History: (Last Reviewed 09/03/20 @ 19:33 by Jeramy Martinez MD) Social History: Marital status: Highest level of school completed/degree received: some college, no degree Service: No Tobacco: Smoking Status: Former smoker Alcohol: alcohol intake: never Substance Use: substance use type: does not use Dietary Habits: caffeine: Yes Physical Exam - Physical Exam General Appearance: Present: alert, other - chronnically ill appearing but in no distress Head Exam: Present: normal inspection, no evidence of injury Eye Exam: Normal inspection: bilateral, PERRL: bilateral Ears, Nose, Throat: Present: normal ENT inspection Neck: Present: normal inspection Respiratory: Present: no respiratory distress, lungs clear Cardiovascular/Chest: Present: tachycardia, irregularly irregular Gastrointestinal/Abdominal: Present: normal bowel sounds, nontender, soft Back Exam: Absent: CVA tenderness (R), CVA tenderness (L) Extremity Exam: Present: other - Bilateral LE erythema below the knees with large necrotic eschar right low leg and areas of drainage left, this appears c/w acute cellulitis. Neurological Exam: Present: alert, other - generalized weaness, no clear acute unilateral focal motor defciits but difficult exam Skin Exam: Present: normal color, warm/dry, other - lower extremity changes as noted above Progress - Results and Orders Patient's Lab Results:: I have reviewed the patient's lab results. - Vital Signs Patient's Vital Signs:: I have reviewed the patient's vital signs. Vital Signs: Vital Signs 09/03/20 19:03 Temperature 37.1 C Pulse Rate 157 H Respiratory Rate 18 Blood Pressure 112/70 O2 Sat by Pulse Oximetry 96 - EKG EKG #1 EKG: atrial fibrillation EKG read: Interp. by me EKG Comments: A fib RVR rate 157. Likely rate related changes, no STEMI clearly noted. Cannot r/o ischemic changes. - Progress/Reassessment Chief Complaint: Cellulitis - Transfer of Care Physician Sign Out: Jeramy Martinez Receiving Physician: Ananda Alcantar Pending Results: Labs, X-ray results Departure Clinical Impression: Atrial fibrillation with RVR, Hyponatremia, Hyperkalemia Cellulitis Qualifiers: Site of cellulitis: extremity Site of cellulitis of extremity: lower extremity Laterality: unspecified laterality Qualified Code(s): L03.119 - Cellulitis of unspecified part of limb - Departure Disposition: Still a patient Condition: Fair <Ananda Alcantar - Last Filed: 09/03/20 23:44> Integumentary HPI - Immun/Allergies/Home Medications Immunizations: IMMUNIZATION HX Immunizations Up to Date No History of Influenza Vaccine No Hx Pneumococcal Vaccination No Medical History (Last Reviewed 09/03/20 @ 19:33 by Jeramy Martinez MD) Atrial flutter Congestive heart failure (CHF) Hypothyroidism Mild aortic stenosis by prior echocardiogram Pulmonary hypertension Refused influenza vaccine Onset Date: ~06/28/18 History of back pain Hx of cervical malignancy Surgical History: Surgical History (Last Reviewed 09/03/20 @ 19:33 by Jeramy Martinez MD) History of carpal tunnel surgery Hx of cervical biopsy Family History: Family History (Last Reviewed 09/03/20 @ 19:33 by Jeramy Martinez MD) Father Heart disease Other No pertinent family history Social History: (Last Reviewed 09/03/20 @ 19:33 by Jeramy Martinez MD) Social History: Marital status: Highest level of school completed/degree received: some college, no degree Service: No Tobacco: Smoking Status: Former smoker Alcohol: alcohol intake: never Substance Use: substance use type: does not use Dietary Habits: caffeine: Yes Progress - Results and Orders Patient's Lab Results:: I have reviewed the patient's lab results. - Vital Signs Patient's Vital Signs:: I have reviewed the patient's vital signs. Vital Signs: Vital Signs 09/03/20 19:03 09/03/20 19:31 09/03/20 19:44 Temperature 37.1 C Pulse Rate 157 H 150 H 110 H Respiratory Rate 18 14 Blood Pressure 112/70 100/77 105/66 O2 Sat by Pulse Oximetry 96 96 09/03/20 20:02 09/03/20 20:14 09/03/20 20:25 Temperature 36.7 C Pulse Rate 108 H 108 H 110 H Respiratory Rate 16 20 Blood Pressure 122/81 125/84 111/76 O2 Sat by Pulse Oximetry 97 93 09/03/20 20:40 09/03/20 21:04 Temperature Pulse Rate 110 H 110 H Respiratory Rate 16 Blood Pressure 116/72 115/79 O2 Sat by Pulse Oximetry 94 - X-Ray X-Ray #1 X-Ray: chest Interpretation: Reviewed by me X-ray Comments: IMPRESSION: Cardiac silhouette enlargement with interstitial pulmonary edema and mild pulmonary vascular congestion. No consolidation. Left midlung linear atelectasis versus scar. Old granulomatous disease. Electronically signed by David Nails D.O.. - Progress/Reassessment Progress:: Improved Progress Note-Subjective: 09/03/20 21:[address] Guerra he agrees with admission to SCU for A. fib with RVR cellulitis hyponatremia and hyperkalemia Ananda Alcantar DO, FAAFP
[2020-09-03] MEDS ORDERED: DILTIAZEM HCL 125 MG in DEXTROSE 5 % IN WATER 100 ML IV PRN ×2 (19:42)
[2020-09-03] MEDS: NORMAL SALINE 1,000 ML IV PRN (19:43)
[2020-09-03 19:58] LABS: Hemoglobin 14.2 gm/dL (12.5-16.0); Mean Cell Volume 94.4 fl (78-100); Mean Corpuscular Hemoglobin 30.5 pg (27-31); Mean Corpuscular Hgb Conc 32.3 g/dl (32-36); Mean Platelet Volume 8.2 fl (8-12.5); Platelet Count 346 K/mm3 (150-450); Red Blood Count 4.66 M/mm3 (4.2-5.4); Red Cell Distribution Width 18.1 % (11.5-14.0); White Blood Count 12.7 K/mm3 (4.0-10.5)
[2020-09-03 20:10] LABS: Total Cells Counted 100
[2020-09-03 20:22] LABS: Urine Bilirubin Negative (NEGATIVE); Urine Blood Negative /ul (NEGATIVE); Urine Ketone Negative (NEGATIVE); Urine Nitrite Negative (NEGATIVE); Urine Protein 15 mg/dL (NEGATIVE); Urine Specific Gravity 1.025 SP.GR. (1.005-1.010); Urine pH 5.5 pH (5.0-7.0)
[2020-09-03 20:27] LABS: Lymphocyte 11 % (20-51); Monocyte 14 % (0-9); Neutrophil 75 % (42-75); Neutrophil # 9.5 K/mm3 (1.3-6.0)
[2020-09-03 20:28] LABS: Platelet Estimate Normal (NORMAL); RBC Morphology Normal (NORMAL)
[2020-09-03 20:32] LABS: Urine Appearance Clear (CLEAR); Urine Color Yellow
[2020-09-03 20:33] LABS: Urine Bacteria None Seen; Urine RBC None Seen /hpf (0-5); Urine WBC None Seen /hpf (0-5)
[2020-09-03 20:45] LABS: ALT 23 U/L (19-67); AST 25 U/L (0-48); Albumin * 2.8 gm/dl (3.4-5.0); Alkaline Phosphatase * 435 U/L (50-170); Anion Gap 16.3 mmol/L (6.8-13.8); BNP * 6644 pg/mL (5-205); Bilirubin, Total 2.1 mg/dL (0.0-1.1); Blood Urea Nitrogen 44 mg/dL (3-23); Ca. Corrected For Albumin 9.9 mg/dL (8.4-10.2); Calcium * 9.3 mg/dL (7.9-10.9); Carbon Dioxide 22.6 mmol/L (24-32.6); Chloride 92 mmol/L (97-106); Glucose * 128 mg/dL (70-110); Potassium 5.9 mmol/L (3.4-4.6); Sodium 125 mmol/L (132-142); TSH * 0.419 uIU/mL (0.358-3.74); Total Protein 8.7 gm/dL (6.2-8.2); Troponin I Less than 0.017 ng/mL (0.00-0.10)
[2020-09-03] MEDS ORDERED: FUROSEMIDE 10 MG/ML VIAL IV ONE (20:57)
[2020-09-03] MEDS ORDERED: SODIUM POLYSTYRENE SULFON/SORB 15 G/60 ML ORAL.SUSP PO ONE (23:16)
--- NOTE | 2020-09-04 00:10 | HP ---
Chief Complaint - Chief Complaint Date of Service: 09/04/20 Time of Service: 00:18 Medical History (Last Reviewed 09/03/20 @ 19:33 by Jeramy Martinez MD) Atrial flutter Congestive heart failure (CHF) Hypothyroidism Mild aortic stenosis by prior echocardiogram Pulmonary hypertension Refused influenza vaccine Onset Date: ~06/28/18 History of back pain Hx of cervical malignancy Surgical History: Surgical History (Last Reviewed 09/03/20 @ 19:33 by Jeramy Martinez MD) History of carpal tunnel surgery Hx of cervical biopsy Family History: Family History (Last Reviewed 09/03/20 @ 19:33 by Jeramy Martinez MD) Father Heart disease Other No pertinent family history Social History: (Last Reviewed 09/03/20 @ 19:33 by Jeramy Martinez MD) Social History: Marital status: Highest level of school completed/degree received: some college, no degree Service: No Tobacco: Smoking Status: Former smoker Alcohol: alcohol intake: never Substance Use: substance use type: does not use Dietary Habits: caffeine: Yes Immunizations: IMMUNIZATION HX Immunizations Up to Date No History of Influenza Vaccine No Hx Pneumococcal Vaccination No Allergies/Adverse Reactions: Allergies Allergy/AdvReac Type Severity Reaction Status Date / Time No Known Allergies Allergy Verified 09/03/20 19:14 Home Medications: HOME MEDICATIONS Apixaban [Eliquis] 5 mg PO BID 10/19/18 [Last Taken Unknown] Gabapentin 300 mg PO TID 10/19/18 [Last Taken Unknown] Furosemide [Lasix] 20 mg PO DAILY 01/02/20 [Last Taken Unknown] Acetaminophen [Tylenol] 500 mg PO Q4H PRN tab 01/03/20 [Last Taken Unknown] Propafenone HCl [Propafenone HCl ER] 325 mg PO DAILY 07/24/20 [Last Taken Unknown] Ferrous Sulfate 650 mg PO DAILY 09/03/20 [Last Taken Unknown] Loratadine 10 mg PO DAILY 09/03/20 [Last Taken Unknown] Potassium Chloride [K-Dur] 40 meq PO DAILY 09/03/20 [Last Taken Unknown] Propranolol HCl [Inderal LA] 160 mg PO BID 09/03/20 [Last Taken Unknown] Exam - Exam Vital Signs: Vital Signs - Last Taken Temp 37.2 C 09/03/20 22:41 Pulse 109 H 09/03/20 23:29 Resp 13 09/03/20 23:29 BP 109/71 09/03/20 23:29 Pulse Ox 95 09/03/20 23:29 Diagnostic Studies: Abnormal Lab Results 09/03/20 09/03/20 09/03/20 Range/Units 19:45 19:45 19:50 WBC 12.7 H (4.0-10.5) K/mm3 RDW 18.1 H (11.5-14.0) % Lymphocytes % (Manual) 11 L (20-51) % Monocytes % (Manual) 14 H (0-9) % Neutrophils # (Manual) 9.5 H (1.3-6.0) K/mm3 Lymphocytes # (Manual) 1.4 L (1.5-3.5) k/mm3 Monocytes # (Manual) 1.8 H (0.0-1.0) k/mm3 Sodium 125 L (132-142) mmol/L Plasma Sodium 125 L (130-142) mmol/L Potassium 5.9 H D (3.4-4.6) mmol/L Chloride 92 L (97-106) mmol/L Carbon Dioxide 22.6 L (24-32.6) mmol/L Anion Gap 16.3 H (6.8-13.8) mmol/L BUN 44 H (3-23) mg/dL Creatinine 1.76 H (0.4-1.4) mg/dL Est GFR (Non-Af Amer) 31 L (60-130) mL/min BUN/Creatinine Ratio 25.0 H (9.0-21.6) Random Glucose 128 H (70-110) mg/dL Total Bilirubin 2.1 H (0.0-1.1) mg/dL Alkaline Phosphatase 435 H (50-170) U/L B-Natriuretic Peptide 6644 H (5-205) pg/mL Total Protein 8.7 H (6.2-8.2) gm/dL Albumin 2.8 L (3.4-5.0) gm/dl Urine Protein 15 H (NEGATIVE) mg/dL Urine Urobilinogen 2.0 H (NORMAL) EU/dl Laboratory Results WBC 12.7 K/mm3 (4.0-10.5) H 09/03/20 19:45 RBC 4.66 M/mm3 (4.2-5.4) 09/03/20 19:45 Hgb 14.2 gm/dL (12.5-16.0) 09/03/20 19:45 Hct 44.0 % (37.0-47.0) 09/03/20 19:45 MCV 94.4 fl (78-100) 09/03/20 19:45 MCH 30.5 pg (27-31) 09/03/20 19:45 MCHC 32.3 g/dl (32-36) 09/03/20 19:45 RDW 18.1 % (11.5-14.0) H 09/03/20 19:45 Plt Count 346 K/mm3 (150-450) 09/03/20 19:45 MPV 8.2 fl (8-12.5) 09/03/20 19:45 Neutrophils % (Manual) 75 % (42-75) 09/03/20 19:45 Lymphocytes % (Manual) 11 % (20-51) L 09/03/20 19:45 Monocytes % (Manual) 14 % (0-9) H 09/03/20 19:45 Neutrophils # (Manual) 9.5 K/mm3 (1.3-6.0) H 09/03/20 19:45 Lymphocytes # (Manual) 1.4 k/mm3 (1.5-3.5) L 09/03/20 19:45 Monocytes # (Manual) 1.8 k/mm3 (0.0-1.0) H 09/03/20 19:45 Platelet Estimate Normal (NORMAL) 09/03/20 19:45 RBC Morphology Normal (NORMAL) 09/03/20 19:45 Sodium 125 mmol/L (132-142) L 09/03/20 19:45 Plasma Sodium 125 mmol/L (130-142) L 09/03/20 19:45 Potassium 5.9 mmol/L (3.4-4.6) H D 09/03/20 19:45 Chloride 92 mmol/L (97-106) L 09/03/20 19:45 Carbon Dioxide 22.6 mmol/L (24-32.6) L 09/03/20 19:45 Anion Gap 16.3 mmol/L (6.8-13.8) H 09/03/20 19:45 BUN 44 mg/dL (3-23) H 09/03/20 19:45 Creatinine 1.76 mg/dL (0.4-1.4) H 09/03/20 19:45 Est GFR (Non-Af Amer) 31 mL/min (60-130) L 09/03/20 19:45 BUN/Creatinine Ratio 25.0 (9.0-21.6) H 09/03/20 19:45 Random Glucose 128 mg/dL (70-110) H 09/03/20 19:45 Lactic Acid, Venous 1.9 mmol/L (0.4-2.0) 09/03/20 19:45 Calcium 9.3 mg/dL (7.9-10.9) 09/03/20 19:45 Calcium Adj for Albumin 9.9 mg/dL (8.4-10.2) 09/03/20 19:45 Total Bilirubin 2.1 mg/dL (0.0-1.1) H 09/03/20 19:45 AST 25 U/L (0-48) 09/03/20 19:45 ALT 23 U/L (19-67) 09/03/20 19:45 Alkaline Phosphatase 435 U/L (50-170) H 09/03/20 19:45 Troponin I Less than 0.017 ng/mL (0.00-0.10) 09/03/20 19:45 B-Natriuretic Peptide 6644 pg/mL (5-205) H 09/03/20 19:45 Total Protein 8.7 gm/dL (6.2-8.2) H 09/03/20 19:45 Albumin 2.8 gm/dl (3.4-5.0) L 09/03/20 19:45 TSH 0.419 uIU/mL (0.358-3.74) 09/03/20 19:45 Urine Color Yellow 09/03/20 19:50 Urine Appearance Clear (CLEAR) 09/03/20 19:50 Urine pH 5.5 pH (5.0-7.0) 09/03/20 19:50 Ur Specific [place] 1.025 SP.GR. (1.005-1.010) 09/03/20 19:50 Urine Protein 15 mg/dL (NEGATIVE) H 09/03/20 19:50 Urine Glucose (UA) Negative mg/dL (NEGATIVE) 09/03/20 19:50 Urine Ketones Negative mg/dL (NEGATIVE) 09/03/20 19:50 Urine Blood Negative /ul (NEGATIVE) 09/03/20 19:50 Urine Nitrate Negative (NEGATIVE) 09/03/20 19:50 Urine Bilirubin Negative mg/dl (NEGATIVE) 09/03/20 19:50 Urine Urobilinogen 2.0 EU/dl (NORMAL) H 09/03/20 19:50 Ur Leukocyte Esterase Negative /ul (NEGATIVE) 09/03/20 19:50 Urine RBC None seen /hpf (0-5) 09/03/20 19:50 Urine WBC None seen /hpf (0-5) 09/03/20 19:50 Ur Epithelial Cells 0-5 /hpf (0-5) 09/03/20 19:50 Urine Bacteria None seen (NONE) 09/03/20 19:50 Urine Culture Comments No culture indicated 09/03/20 19:50 SARS-CoV-2 (PCR) Not detected (NotDetected) 09/03/20 21:31
--- NOTE | 2020-09-04 00:23 | HP ---
Chief Complaint - Chief Complaint Date of Service: 09/04/20 Time of Service: 00:22 Chief Complaint: Leg pain History of Present Illness: 60-year-old female with history of A. fib and RVR currently on Inderal, Eliquis, and propafenone presented to the hospital with very tender lower extremities. Patient is alert to self but otherwise refusing to answer questions. In the ER her initial work-up showed her to have a white count of 12.7 with no shift. Her chemistry panel was abnormal with a sodium of 125, potassium of 5.9, chloride of 92, and a small gap at 16.3, and elevated creatinine of 1.76 with a GFR 31. Baseline creatinine is around 1 so this is a significant acute kidney injury. Patient also had an elevated BNP at 6644 which is higher than her normal which usually is between 4768-3244. Patient was found to be in A. fib with RVR and started on Cardizem in the ER. She was also started on Zosyn for lower extremity bilateral cellulitis with pressure sores. The extent of her sores were not disclosed to me at the time of admission. Upon examining the patient, she was found to have significant cellulitic infection bilaterally with severe pressure sores with large eschars covering them. Purulent discharge from both of them. Patient's afebrile. Patient states he has not taken the medicine with a several not of her head. Otherwise refusing to answer most questions. Very concerned about her lower extremity cellulitis/pressure sores/eschar formation on her bilateral legs ( left much worse than right). Patient currently on Cardizem at 10 after a bolus received in the ER. Her rate right now is between 100-110s. Otherwise she is hemodynamically stable and not requiring oxygen. Lastly patient does have what appears to be a right-sided bacterial conjunctivitis with significant drainage and group around her eye. Again she refuses answer any questions about this. Patient is on apixaban for anticoagulation, 5 mg twice daily. Patient was given Kayexalate in the ER for hyperkalemia. Patient initially was thought to be dry before BMP came back and received some IV fluid but due to her elevated BNP she also received a dose of Lasix once it came back. Her electrolytes need to be monitored closely. Patient refuses to answer if she is in pain or not though she does wince when her legs are examined. Medical History (Last Reviewed 09/03/20 @ 19:33 by Jeramy Martinez MD) Atrial flutter Congestive heart failure (CHF) Hypothyroidism Mild aortic stenosis by prior echocardiogram Pulmonary hypertension Refused influenza vaccine Onset Date: ~06/28/18 History of back pain Hx of cervical malignancy Surgical History: Surgical History (Last Reviewed 09/03/20 @ 19:33 by Jeramy Martinez MD) History of carpal tunnel surgery Hx of cervical biopsy Family History: Family History (Last Reviewed 09/03/20 @ 19:33 by Jeramy Martinez MD) Father Heart disease Other No pertinent family history Social History: (Last Reviewed 09/03/20 @ 19:33 by Jeramy Martinez MD) Social History: Marital status: Highest level of school completed/degree received: some college, no degree Service: No Tobacco: Smoking Status: Former smoker Alcohol: alcohol intake: never Substance Use: substance use type: does not use Dietary Habits: caffeine: Yes Review Of Systems (GEN) - Review of Systems Additional Comments: Review of systems not obtained due to patient's unwillingness to vocalize her answers. All she will agree with is not her head when asked if her legs hurt. She will respond to cardiac questions, respiratory questions, or whether she had fevers or chills. Immunizations: IMMUNIZATION HX Immunizations Up to Date No History of Influenza Vaccine No Hx Pneumococcal Vaccination No Allergies/Adverse Reactions: Allergies Allergy/AdvReac Type Severity Reaction Status Date / Time No Known Allergies Allergy Verified 09/03/20 19:14 Home Medications: HOME MEDICATIONS Apixaban [Eliquis] 5 mg PO BID 10/19/18 [Last Taken Unknown] Gabapentin 300 mg PO TID 10/19/18 [Last Taken Unknown] Furosemide [Lasix] 20 mg PO DAILY 01/02/20 [Last Taken Unknown] Acetaminophen [Tylenol] 500 mg PO Q4H PRN tab 01/03/20 [Last Taken Unknown] Propafenone HCl [Propafenone HCl ER] 325 mg PO DAILY 07/24/20 [Last Taken Unknown] Ferrous Sulfate 650 mg PO DAILY 09/03/20 [Last Taken Unknown] Loratadine 10 mg PO DAILY 09/03/20 [Last Taken Unknown] Potassium Chloride [K-Dur] 40 meq PO DAILY 09/03/20 [Last Taken Unknown] Propranolol HCl [Inderal LA] 160 mg PO BID 09/03/20 [Last Taken Unknown] Exam - Exam Vital Signs: Vital Signs - Last Taken Temp 37.2 C 09/03/20 22:41 Pulse 117 H 09/03/20 23:51 Resp 18 09/03/20 23:51 BP 107/63 09/03/20 23:51 Pulse Ox 96 09/03/20 23:51 Constitutional: Present: Alert, Moderate distress, Somnolent, Overweight. Absent: Oriented x3 - X1, patient no self ENT Exam: Present: hearing grossly normal. Absent: hard of hearing Eye Exam: bilateral eye: EOMI, right eye: other - Purulent drainage and crust Neck: Present: non-tender, supple Respiratory: Present: lungs clear, normal breath sounds Cardiovascular/Chest: Present: systolic murmur - 2+/6, irregularly irregular Peripheral Pulses: dorsalis-pedis (R): 1+ - Difficult to palpate due to infection, dorsalis-pedis (L): 1+ - Difficult to palpate due to infection Abdomen: Present: nontender, rigidity. Absent: nondistended, guarding Extremity: Present: lower extremity edema Skin Exam: Present: other - Significant erythema circumferential around both legs up to her knees with some edema. Significant open sores with eschar formation bilaterally with purulent drainage. Foul-smelling. Toes are discolored and much darker than the rest of her coloration Appearance: Present: disheveled Eye contact: Present: avoids eye contact, refused to answer Diagnostic Studies: Abnormal Lab Results 09/03/20 09/03/20 09/03/20 Range/Units 19:45 19:45 19:50 WBC 12.7 H (4.0-10.5) K/mm3 RDW 18.1 H (11.5-14.0) % Lymphocytes % (Manual) 11 L (20-51) % Monocytes % (Manual) 14 H (0-9) % Neutrophils # (Manual) 9.5 H (1.3-6.0) K/mm3 Lymphocytes # (Manual) 1.4 L (1.5-3.5) k/mm3 Monocytes # (Manual) 1.8 H (0.0-1.0) k/mm3 Sodium 125 L (132-142) mmol/L Plasma Sodium 125 L (130-142) mmol/L Potassium 5.9 H D (3.4-4.6) mmol/L Chloride 92 L (97-106) mmol/L Carbon Dioxide 22.6 L (24-32.6) mmol/L Anion Gap 16.3 H (6.8-13.8) mmol/L BUN 44 H (3-23) mg/dL Creatinine 1.76 H (0.4-1.4) mg/dL Est GFR (Non-Af Amer) 31 L (60-130) mL/min BUN/Creatinine Ratio 25.0 H (9.0-21.6) Random Glucose 128 H (70-110) mg/dL Total Bilirubin 2.1 H (0.0-1.1) mg/dL Alkaline Phosphatase 435 H (50-170) U/L B-Natriuretic Peptide 6644 H (5-205) pg/mL Total Protein 8.7 H (6.2-8.2) gm/dL Albumin 2.8 L (3.4-5.0) gm/dl Urine Protein 15 H (NEGATIVE) mg/dL Urine Urobilinogen 2.0 H (NORMAL) EU/dl Laboratory Results WBC 12.7 K/mm3 (4.0-10.5) H 09/03/20 19:45 RBC 4.66 M/mm3 (4.2-5.4) 09/03/20 19:45 Hgb 14.2 gm/dL (12.5-16.0) 09/03/20 19:45 Hct 44.0 % (37.0-47.0) 09/03/20 19:45 MCV 94.4 fl (78-100) 09/03/20 19:45 MCH 30.5 pg (27-31) 09/03/20 19:45 MCHC 32.3 g/dl (32-36) 09/03/20 19:45 RDW 18.1 % (11.5-14.0) H 09/03/20 19:45 Plt Count 346 K/mm3 (150-450) 09/03/20 19:45 MPV 8.2 fl (8-12.5) 09/03/20 19:45 Neutrophils % (Manual) 75 % (42-75) 09/03/20 19:45 Lymphocytes % (Manual) 11 % (20-51) L 09/03/20 19:45 Monocytes % (Manual) 14 % (0-9) H 09/03/20 19:45 Neutrophils # (Manual) 9.5 K/mm3 (1.3-6.0) H 09/03/20 19:45 Lymphocytes # (Manual) 1.4 k/mm3 (1.5-3.5) L 09/03/20 19:45 Monocytes # (Manual) 1.8 k/mm3 (0.0-1.0) H 09/03/20 19:45 Platelet Estimate Normal (NORMAL) 09/03/20 19:45 RBC Morphology Normal (NORMAL) 09/03/20 19:45 Sodium 125 mmol/L (132-142) L 09/03/20 19:45 Plasma Sodium 125 mmol/L (130-142) L 09/03/20 19:45 Potassium 5.9 mmol/L (3.4-4.6) H D 09/03/20 19:45 Chloride 92 mmol/L (97-106) L 09/03/20 19:45 Carbon Dioxide 22.6 mmol/L (24-32.6) L 09/03/20 19:45 Anion Gap 16.3 mmol/L (6.8-13.8) H 09/03/20 19:45 BUN 44 mg/dL (3-23) H 09/03/20 19:45 Creatinine 1.76 mg/dL (0.4-1.4) H 09/03/20 19:45 Est GFR (Non-Af Amer) 31 mL/min (60-130) L 09/03/20 19:45 BUN/Creatinine Ratio 25.0 (9.0-21.6) H 09/03/20 19:45 Random Glucose 128 mg/dL (70-110) H 09/03/20 19:45 Lactic Acid, Venous 1.9 mmol/L (0.4-2.0) 09/03/20 19:45 Calcium 9.3 mg/dL (7.9-10.9) 09/03/20 19:45 Calcium Adj for Albumin 9.9 mg/dL (8.4-10.2) 09/03/20 19:45 Total Bilirubin 2.1 mg/dL (0.0-1.1) H 09/03/20 19:45 AST 25 U/L (0-48) 09/03/20 19:45 ALT 23 U/L (19-67) 09/03/20 19:45 Alkaline Phosphatase 435 U/L (50-170) H 09/03/20 19:45 Troponin I Less than 0.017 ng/mL (0.00-0.10) 09/03/20 19:45 B-Natriuretic Peptide 6644 pg/mL (5-205) H 09/03/20 19:45 Total Protein 8.7 gm/dL (6.2-8.2) H 09/03/20 19:45 Albumin 2.8 gm/dl (3.4-5.0) L 09/03/20 19:45 TSH 0.419 uIU/mL (0.358-3.74) 09/03/20 19:45 Urine Color Yellow 09/03/20 19:50 Urine Appearance Clear (CLEAR) 09/03/20 19:50 Urine pH 5.5 pH (5.0-7.0) 09/03/20 19:50 Ur Specific [place] 1.025 SP.GR. (1.005-1.010) 09/03/20 19:50 Urine Protein 15 mg/dL (NEGATIVE) H 09/03/20 19:50 Urine Glucose (UA) Negative mg/dL (NEGATIVE) 09/03/20 19:50 Urine Ketones Negative mg/dL (NEGATIVE) 09/03/20 19:50 Urine Blood Negative /ul (NEGATIVE) 09/03/20 19:50 Urine Nitrate Negative (NEGATIVE) 09/03/20 19:50 Urine Bilirubin Negative mg/dl (NEGATIVE) 09/03/20 19:50 Urine Urobilinogen 2.0 EU/dl (NORMAL) H 09/03/20 19:50 Ur Leukocyte Esterase Negative /ul (NEGATIVE) 09/03/20 19:50 Urine RBC None seen /hpf (0-5) 09/03/20 19:50 Urine WBC None seen /hpf (0-5) 09/03/20 19:50 Ur Epithelial Cells 0-5 /hpf (0-5) 09/03/20 19:50 Urine Bacteria None seen (NONE) 09/03/20 19:50 Urine Culture Comments No culture indicated 09/03/20 19:50 SARS-CoV-2 (PCR) Not detected (NotDetected) 09/03/20 21:31 Assessment/Plan - Narrative Narrative: Patient with significant medical conditions at this time. Patient admitted to the SCU for closer monitoring. Patient is on telemetry The first is her A. fib with RVR, patient states she been taking her medicines according to ER records but refuses answer me at this time. She is on Inderal and propafenone for this. She also is on Eliquis for anticoagulation. Her rate is better now than it was initially on a Cardizem drip as she came in in the 150s to 170s and is now in the 110s. We will continue Eliquis and Cardizem drip. We will restart her home medications and wean her off of the Cardizem as soon as possible. Currently hemodynamically stable with normal blood pressure and normal respiratory status. Patient likely with CHF exacerbation but she does not appear to be fluid overloaded aside from the swelling of her legs. This 1 is likely due to the infection more so than edema though as her lung exam is clear and and there is mild vascular congestion seen on chest x-ray. She did receive a dose of Lasix in the ER. Will fluid restrict her due to her CHF exacerbation as well as her hyponatremia and monitor electrolytes, repeat BMP in the morning. She does have a leukocytosis of 12.9 with no shift. Repeat CBC in the morning. Patient is on Zosyn for her for the extensive lower extremity infections. Will order wound care consult for debridement and further attention to her open sores. Patient did receive Kayexalate and Lasix. Will repeat potassium in the morning. We will continue with these medications as needed if potassium does not improve. Overall patient is fairly sick but stable. Patient on Eliquis for DVT prophylaxis. Heart healthy diet ordered. Nurse to call questions or concerns. Greater than 1 hour critical care time spent with patient. - Assessment/Plan (1) Atrial flutter with rapid ventricular response Problem: Acute (2) CHF (congestive heart failure) Problem: Acute Qualifiers: Heart failure type: high output Qualified Code(s): I50.83 - High output heart failure (3) Eschar of multiple sites Problem: Acute (4) Purulent dermatitis Problem: Acute (5) Cellulitis Problem: Acute Qualifiers: Site of cellulitis: extremity Site of cellulitis of extremity: lower extremity Laterality: unspecified laterality Qualified Code(s): L03.119 - Cellulitis of unspecified part of limb (6) Hyponatremia Problem: Acute (7) Hyperkalemia Problem: Acute
[2020-09-04] MEDS: ERYTHROMYCIN BASE 3.5 APPL TUBE RIGHTEYE SCH ×4 (01:52→16:51)
[2020-09-04] MEDS: PIPERACILLIN SODIUM/TAZOBACTAM 3.375 GM in DEXTROSE 5 % IN WATER 100 ML IV SCH ×6 (02:13→18:20)
[2020-09-04] MEDS: NORMAL SALINE 1,000 ML IV PRN ×3 (03:13→18:36)
[2020-09-04 07:21] LABS: Hematocrit 36.3 % (37.0-47.0); Hemoglobin 11.8 gm/dL (12.5-16.0); Mean Cell Volume 92.4 fl (78-100); Mean Corpuscular Hgb Conc 32.5 g/dl (32-36); Mean Platelet Volume 8.6 fl (8-12.5); Platelet Count 255 K/mm3 (150-450); Red Blood Count 3.93 M/mm3 (4.2-5.4); Red Cell Distribution Width 17.9 % (11.5-14.0); White Blood Count 14.9 K/mm3 (4.0-10.5)
[2020-09-04 07:28] LABS: Total Cells Counted 100
[2020-09-04 07:50] LABS: Albumin * 2.3 gm/dl (3.4-5.0); Anion Gap 12.2 mmol/L (6.8-13.8); BUN/Creatinine Ratio 25.2 (9.0-21.6); Bilirubin, Total 2.5 mg/dL (0.0-1.1); Ca. Corrected For Albumin 9.5 mg/dL (8.4-10.2); Calcium * 8.5 mg/dL (7.9-10.9); Carbon Dioxide 23.4 mmol/L (24-32.6); Potassium 3.6 mmol/L (3.4-4.6); Total Protein 6.9 gm/dL (6.2-8.2)
[2020-09-04 07:52] LABS: Lymphocyte 5 % (20-51); Monocyte 13 % (0-9); Neutrophil 82 % (42-75); Neutrophil # 12.2 K/mm3 (1.3-6.0)
[2020-09-04 07:53] LABS: Platelet Estimate Normal (NORMAL); RBC Morphology Normal (NORMAL)
[2020-09-04] MEDS ORDERED: PROPAFENONE HCL 325 MG PO SCH (09:00)
[2020-09-04] MEDS ORDERED: FLU VACC QS2020-21(6MOS UP)/PF 60 MCG/0.5 ML SYRINGE IM ONE (09:00)
[2020-09-04] MEDS: APIXABAN 5 MG TABLET PO SCH ×3 (10:13→20:03)
[2020-09-04] MEDS: PROPRANOLOL HCL 80 MG CAPSULE.SA PO SCH ×3 (10:13→20:02)
[2020-09-04] MEDS: GABAPENTIN 300 MG CAPSULE PO SCH ×4 (10:14→16:51)
[2020-09-04] MEDS: POTASSIUM CHLORIDE 20 MEQ TABLET.SA PO SCH ×3 (10:14→11:15)
[2020-09-04] MEDS: FUROSEMIDE 20 MG TABLET PO SCH ×2 (10:14→11:00)
--- NOTE | 2020-09-04 13:53 | CONS ---
- Reason for consultation (1) Eschar of multiple sites Date of Service: 09/04/20 HPI - General Source: patient - History of Present Illness Initial Comments: Patient is a 60-year-old female, recently admitted to the hospital after presenting to the Emergency Department regarding pain in her legs. The diagnosis on admission was A. fib with RVR, congestive heart failure, cellulitis, hyponatremia and hyperkalemia. The patient is alert but does not always answer the question asked. She states that the area developed possibly a few months ago, when her legs started weeping. She states her legs are very painful. She denies any prior vascular procedures. Her medical history is notable for atrial flutter, congestive heart failure, back pain, cervical malignancy, hypothyroid, and pulmonary hypertension. Timing/Duration: unsure Allergies/Adverse Reactions: Allergies No Known Allergies Allergy (Verified 09/03/20 19:14) Home Medications: Home Medications Medication Instructions Recorded Last Taken Apixaban [Eliquis] 5 mg PO BID 10/19/18 Unknown Gabapentin 300 mg PO TID 10/19/18 Unknown Furosemide [Lasix] 20 mg PO DAILY 01/02/20 Unknown Acetaminophen [Tylenol] 500 mg PO Q4H PRN tab 01/03/20 Unknown Propafenone HCl [Propafenone HCl 325 mg PO DAILY 07/24/20 Unknown ER] Ferrous Sulfate 650 mg PO DAILY 09/03/20 Unknown Loratadine 10 mg PO DAILY 09/03/20 Unknown Potassium Chloride [K-Dur] 40 meq PO DAILY 09/03/20 Unknown Propranolol HCl [Inderal LA] 160 mg PO BID 09/03/20 Unknown Procedures Closure of skin and subcutaneous tissue of other sites (11/14/00) Release of carpal tunnel (02/21/02) Medications - Medications Current Medications: Current Medications Apixaban (Apixaban 5 Mg Tablet) 5 mg PO BID ELAINA Stop: 10/04/20 09:01 Last Admin: 09/04/20 11:16 Dose: 5 mg Documented by: Erythromycin (Erythromycin Base 3.5 Appl Tube) 1 appl RIGHTEYE TID ELAINA Stop: 10/04/20 00:31 Last Admin: 09/04/20 10:22 Dose: 1 appl Documented by: Furosemide (Furosemide 20 Mg Tablet) 20 mg PO DAILY [facility] Stop: 10/04/20 09:01 Last Admin: 09/04/20 11:00 Dose: Not Given Documented by: Gabapentin (Gabapentin 300 Mg Capsule) 300 mg PO TID ELAINA Stop: 10/04/20 09:01 Last Admin: 09/04/20 11:09 Dose: 300 mg Documented by: Sodium Chloride (Sodium Chloride 0.9%) 1,000 mls @ 126 mls/hr IV .Q7H57M PRN PRN Reason: HYDRATION Stop: 10/03/20 19:43 Last Admin: 09/04/20 11:15 Dose: 126 mls/hr Documented by: Diltiazem HCl 125 mg/ Dextrose (/Water) 125 mls @ 0 mls/hr IV TITR PRN; Protocol PRN Reason: Arrhythmia Stop: 10/03/20 19:43 Last Titration: 09/04/20 08:10 Dose: 0 mg/hr, 0 mls/hr Documented by: Piperacillin Sod/Tazobactam (Sod 3.375 gm/ Dextrose/Water) 100 mls @ 25 mls/hr IV Q8H ELAINA; Protocol Stop: 10/04/20 02:46 Last Admin: 09/04/20 11:12 Dose: 25 mls/hr Documented by: Potassium Chloride (Potassium Chloride 20 Meq Tablet.Sa) 40 meq PO DAILY ELAINA Stop: 10/04/20 09:01 Last Admin: 09/04/20 11:15 Dose: Not Given Documented by: Propranolol HCl (Propranolol Hcl 80 Mg Capsule.Sa) 160 mg PO BID ELAINA Stop: 10/04/20 09:01 Last Admin: 09/04/20 11:12 Dose: 160 mg Documented by: Review of Systems - Review of Systems Narrative: Unable to obtain, due to patient condition. Physical Examination - Exam Vital Signs: Vital Signs - Last Taken Temp 37.6 C 09/04/20 11:18 Pulse 106 H 09/04/20 12:12 Resp 16 09/04/20 12:12 BP 101/57 09/04/20 12:12 Pulse Ox 98 09/04/20 12:12 O2 Oxygen Delivery Method Room Air Constitutional: Present: Alert, No distress ENT Exam: Present: hearing grossly normal Respiratory: Present: no respiratory distress Extremity: Present: lower extremity edema, leg pain, pedal edema - Pulses are not palpable due to edema., other - The entire posterior left lower leg is covered with dry necrotic tissue. Erythema measures approximately 2 cm in circumference. Skin Exam: Present: warm/dry, other - Right lower leg ulcer measures 12 cm x 6.5 cm, completely covered with dry necrotic tissue. Multiple pustule areas present throughout. Erythema approximately 2 cm in circumference of the ulcer. Ulcer on the dorsal aspect of the left foot approximately 5 cm in circumference. Dry necrosis present. Eye contact: Present: refused to answer - Results and Findings: Lab/Microbiology results last 24 hrs: Abnormal/Pending Laboratory Last 24 HRS 09/04/20 09/04/20 09/03/20 06:40 06:40 22:00 WBC 14.9 H RBC 3.93 L Hgb 11.8 L Hct 36.3 L RDW 17.9 H Neutrophils % (Manual) 82 H Lymphocytes % (Manual) 5 L Monocytes % (Manual) 13 H Neutrophils # (Manual) 12.2 H Lymphocytes # (Manual) 0.7 L Monocytes # (Manual) 1.9 H ESR Sodium Plasma Sodium Potassium Chloride Carbon Dioxide 23.4 L Anion Gap BUN 40 H Creatinine 1.59 H Est GFR (Non-Af Amer) 35 L BUN/Creatinine Ratio 25.2 H Random Glucose 136 H Total Bilirubin 2.5 H ALT 15 L Alkaline Phosphatase 342 H C-Reactive Prot, Quant 5.6 H B-Natriuretic Peptide Total Protein Albumin 2.3 L Urine Protein Urine Urobilinogen 09/03/20 09/03/20 09/03/20 22:00 19:50 19:45 WBC RBC Hgb Hct RDW Neutrophils % (Manual) Lymphocytes % (Manual) Monocytes % (Manual) Neutrophils # (Manual) Lymphocytes # (Manual) Monocytes # (Manual) ESR 65 H Sodium 125 L Plasma Sodium 125 L Potassium 5.9 H D Chloride 92 L Carbon Dioxide 22.6 L Anion Gap 16.3 H BUN 44 H Creatinine 1.76 H Est GFR (Non-Af Amer) 31 L BUN/Creatinine Ratio 25.0 H Random Glucose 128 H Total Bilirubin 2.1 H ALT Alkaline Phosphatase 435 H C-Reactive Prot, Quant B-Natriuretic Peptide 6644 H Total Protein 8.7 H Albumin 2.8 L Urine Protein 15 H Urine Urobilinogen 2.0 H 09/03/20 19:45 WBC 12.7 H RBC Hgb Hct RDW 18.1 H Neutrophils % (Manual) Lymphocytes % (Manual) 11 L Monocytes % (Manual) 14 H Neutrophils # (Manual) 9.5 H Lymphocytes # (Manual) 1.4 L Monocytes # (Manual) 1.8 H ESR Sodium Plasma Sodium Potassium Chloride Carbon Dioxide Anion Gap BUN Creatinine Est GFR (Non-Af Amer) BUN/Creatinine Ratio Random Glucose Total Bilirubin ALT Alkaline Phosphatase C-Reactive Prot, Quant B-Natriuretic Peptide Total Protein Albumin Urine Protein Urine Urobilinogen Culture 09/03/20 19:47 Wound Culture - Preliminary Leg - Left Ruling Out Pathogen 09/03/20 21:17 Wound Culture - Preliminary Leg - Right Ruling Out Pathogen - Assessments/Findings (1) Eschar of multiple sites Diagnosis(s): Due to the amount of necrotic tissue present, recommend using Santyl, for enzymatic debridement. This will be applied to all ulcers, cover with gauze and secure with tape. The dressing will be changed daily. Wash the area with Hibiclens at dressing changes. In review, it states that the pulses were obtained with Doppler. May consider vascular work-up with ABIs. Problem: Acute
[2020-09-04] MEDS: COLLAGENASE CLOSTRIDIUM HIST. 30 APPL TUBE TP SCH (14:46)
[2020-09-04] MEDS: CHLORHEX GL/ISOPROPYL ALCOHOL 960 APPL BTL TP SCH (15:10)
[2020-09-04] MEDS: ACETAMINOPHEN 500 MG TABLET PO PRN (15:17)
[2020-09-04 19:28] LABS: Urine Bilirubin 1 mg/dl (NEGATIVE); Urine Blood 250 /ul (NEGATIVE); Urine Ketone 5 mg/dL (NEGATIVE); Urine Protein 100 mg/dL (NEGATIVE); Urine Specific Gravity 1.025 SP.GR. (1.005-1.010); Urine pH 6.5 pH (5.0-7.0)
[2020-09-04 19:44] LABS: Urine Appearance Cloudy (CLEAR); Urine Bacteria TRACE; Urine Color Yellow; Urine Nitrite Positive (NEGATIVE); Urine RBC >50 /hpf (0-5); Urine WBC 0-5 /hpf (0-5)
[2020-09-05] MEDS: NORMAL SALINE 1,000 ML IV PRN ×2 (02:11→10:27)
[2020-09-05] MEDS: PIPERACILLIN SODIUM/TAZOBACTAM 3.375 GM in DEXTROSE 5 % IN WATER 100 ML IV SCH ×6 (02:12→18:32)
[2020-09-05] MEDS: POTASSIUM CHLORIDE 20 MEQ TABLET.SA PO SCH (08:39)
[2020-09-05] MEDS: PROPRANOLOL HCL 80 MG CAPSULE.SA PO SCH ×2 (08:39→20:08)
[2020-09-05] MEDS: APIXABAN 5 MG TABLET PO SCH ×2 (08:40→20:09)
[2020-09-05] MEDS: GABAPENTIN 300 MG CAPSULE PO SCH ×3 (08:40→17:39)
[2020-09-05] MEDS: FUROSEMIDE 20 MG TABLET PO SCH (08:40)
[2020-09-05] MEDS: ERYTHROMYCIN BASE 3.5 APPL TUBE RIGHTEYE SCH ×3 (08:40→17:39)
[2020-09-05 09:44] LABS: Hemoglobin 11.9 gm/dL (12.5-16.0); Mean Cell Volume 95.4 fl (78-100); Mean Corpuscular Hemoglobin 30.7 pg (27-31); Mean Corpuscular Hgb Conc 32.2 g/dl (32-36); Neutrophil # 5.6 K/mm3 (1.3-6.0); Platelet Count 241 K/mm3 (150-450); Red Blood Count 3.88 M/mm3 (4.2-5.4); Red Cell Distribution Width 18.4 % (11.5-14.0); White Blood Count 8.4 K/mm3 (4.0-10.5)
[2020-09-05 10:01] LABS: BUN/Creatinine Ratio 23.1 (9.0-21.6); Calcium * 8.5 mg/dL (7.9-10.9); Carbon Dioxide 21.3 mmol/L (24-32.6); Estimated Creat Clear 40.4; Potassium 3.3 mmol/L (3.4-4.6)
[2020-09-05] MEDS ORDERED: PROPAFENONE HCL 150 MG TABLET PO SCH (10:15)
[2020-09-05] MEDS ORDERED: DILTIAZEM HCL 30 MG TABLET PO SCH (10:15)
--- NOTE | 2020-09-05 11:23 | PN ---
Subjective - Date and Time Seen Date: 09/05/20 Time: 11:20 Subjective Narrative: Patient is much more alert and oriented today, she is pleasant and easy to talk to. Lab work much improved. White count has returned to normal. Kidney function back at her baseline. Potassium mildly low at 3.3, will replace. Currently being followed by wound care, daily dressing changes. Significant infection still but improving. Heart rate still not controlled on just Inderal. Objective - Review of Systems Generalized/Overall Review: Reports: Weakness. Denies: Chills, Fever EENTM: Reports: No Symptoms Reported Respiratory: Denies: Cough, Shortness of Breath Cardiac: Reports: Edema, Palpitations. Denies: Chest Pain Abdominal: Reports: No Symptoms Reported Genitourinary Symptoms: Reports: No Symptoms Reported Neurological: Reports: No Symptoms Reported Skin: Reports: Other - Legs covered with gauze, currently being changed by wound care - Vitals Vitals: Last Vital Signs Temp 36.9 C 09/05/20 10:40 Pulse 130 H 09/05/20 10:40 Resp 17 09/05/20 10:40 BP 110/73 09/05/20 10:40 Pulse Ox 97 09/05/20 10:40 - Abnormal Lab Findings Abnormal Lab Findings: Abnormal Lab Results 09/04/20 09/05/20 09/05/20 Range/Units 17:15 09:33 09:33 RBC 3.88 L (4.2-5.4) M/mm3 Hgb 11.9 L (12.5-16.0) gm/dL RDW 18.4 H (11.5-14.0) % Immature Gran % (Auto) 0.70 H (0.001-0.429) % Immature Gran # (Auto) 0.06 H (0.000-0.0310) K/mm3 Lymphocytes % 15.9 L (20-51) % Monocytes % 16.2 H (0.0-9) % Lymphocytes # 1.34 L (1.5-3.5) k/mm3 Monocytes # 1.4 H (0.0-1.0) k/mm3 Sodium 131 L (132-142) mmol/L Potassium 3.3 L (3.4-4.6) mmol/L Carbon Dioxide 21.3 L (24-32.6) mmol/L Anion Gap 14.0 H (6.8-13.8) mmol/L BUN 28 H (3-23) mg/dL Est GFR (Non-Af Amer) 48 L D (60-130) mL/min BUN/Creatinine Ratio 23.1 H (9.0-21.6) Urine Protein 100 H (NEGATIVE) mg/dL Urine Blood 250 H (NEGATIVE) /ul Urine Nitrate Positive H (NEGATIVE) Urine Bilirubin 1 H (NEGATIVE) mg/dl Urine Urobilinogen 2.0 H (NORMAL) EU/dl Ur Leukocyte Esterase 25 H (NEGATIVE) /ul Urine RBC >50 H (0-5) /hpf Uric Acid Crystals Few - 1+ H (NONE) /hpf Urine Comment Culture ordered L - Exam Constitutional: Present: Alert, Oriented x3, Mild distress Cardiovascular/Chest: Present: systolic murmur - 2/6, irregularly irregular Abdomen: Present: nontender, nondistended, rigidity Extremity: Present: other - Currently covered in clean bandages, significant necrotic tissue seen last night though prior to dressing change with purulent discharge bilateral lower extremities. Appearance: Present: appropriate insight, disheveled Eye contact: Present: cooperative, good eye contact Thoughts: Present: normal mood /affect Cauti Physician Documentation - Urinary Catheter Management Urethral (Tsai) Date of Insertion: 09/03/20 Time of Insertion: 21:46 Assessment/Plan Plan Narrative: Patient is improving, once we get her heart rate under better control will transfer her out of the unit. She is on eliquis. VSS aside from elevated HR. Cont tx plan as outlined. - Problems/Diagnosis (1) Atrial flutter with rapid ventricular response Problem: Acute Narrative: Patient still in A. fib with RVR. Rates ranging from 120s 130s. Patient previously only on Inderal as she never started the propafenone. Will not start this but going to start her on diltiazem at 30 mg 3 times daily in addition to her Inderal. Patient on Eliquis for anticoagulation. (2) CHF (congestive heart failure) Problem: Acute Qualifiers: Heart failure type: high output Qualified Code(s): I50.83 - High output heart failure Narrative: Weight is stable. She is on Inderal. No shortness of breath. We will continue to monitor. Restart Lasix at a low dose as well as her potassium. (3) Eschar of multiple sites Problem: Acute Narrative: Significant necrotic tissue seen underneath the eschars once they are removed. Currently being followed by wound care he was treating her with Vikash chemically debride all this the tissue. Morphine ordered to be administered prior to dressing changes (4) Purulent dermatitis Problem: Acute (5) Cellulitis Problem: Acute Qualifiers: Site of cellulitis: extremity Site of cellulitis of extremity: lower extremity Laterality: unspecified laterality Qualified Code(s): L03.119 - Cellulitis of unspecified part of limb Narrative: on Zosyn, wbc improving. (6) Hyponatremia Problem: Resolved (7) Hyperkalemia Problem: Resolved
[2020-09-05] MEDS: ACETAMINOPHEN 500 MG TABLET PO PRN (13:28)
[2020-09-05] MEDS: MORPHINE SULFATE 2 MG/ML DISP.SYRIN IV PRN (14:33)
[2020-09-05] MEDS: CHLORHEX GL/ISOPROPYL ALCOHOL 960 APPL BTL TP SCH (15:58)
[2020-09-05] MEDS: COLLAGENASE CLOSTRIDIUM HIST. 30 APPL TUBE TP SCH (15:59)
[2020-09-06] MEDS: PIPERACILLIN SODIUM/TAZOBACTAM 3.375 GM in DEXTROSE 5 % IN WATER 100 ML IV SCH ×6 (02:14→18:33)
[2020-09-06] MEDS: DILTIAZEM HCL 30 MG TABLET PO SCH ×3 (03:51→20:49)
[2020-09-06 08:14] LABS: Hematocrit 38.1 % (37.0-47.0); Mean Cell Volume 94.5 fl (78-100); Mean Corpuscular Hemoglobin 29.8 pg (27-31); Mean Corpuscular Hgb Conc 31.5 g/dl (32-36); Mean Platelet Volume 8.3 fl (8-12.5); Neutrophil # 6.7 K/mm3 (1.3-6.0); Neutrophil % 69.4 % (42-75.0); Platelet Count 265 K/mm3 (150-450); Red Blood Count 4.03 M/mm3 (4.2-5.4); Red Cell Distribution Width 17.9 % (11.5-14.0); White Blood Count 9.7 K/mm3 (4.0-10.5)
[2020-09-06 08:33] LABS: Albumin * 2.3 gm/dl (3.4-5.0); Anion Gap 12.5 mmol/L (6.8-13.8); BUN/Creatinine Ratio 21.2 (9.0-21.6); Ca. Corrected For Albumin 9.7 mg/dL (8.4-10.2); Calcium * 8.7 mg/dL (7.9-10.9); Carbon Dioxide 24.3 mmol/L (24-32.6); Potassium 4.8 mmol/L (3.4-4.6); Total Protein 7.3 gm/dL (6.2-8.2)
[2020-09-06] MEDS: APIXABAN 5 MG TABLET PO SCH ×2 (08:34→20:49)
[2020-09-06] MEDS: FUROSEMIDE 20 MG TABLET PO SCH (08:34)
[2020-09-06] MEDS: PROPRANOLOL HCL 80 MG CAPSULE.SA PO SCH ×2 (08:34→20:52)
[2020-09-06] MEDS: GABAPENTIN 300 MG CAPSULE PO SCH ×3 (08:35→17:40)
[2020-09-06] MEDS: ERYTHROMYCIN BASE 3.5 APPL TUBE RIGHTEYE SCH ×3 (08:40→17:40)
[2020-09-06] MEDS: MORPHINE SULFATE 2 MG/ML DISP.SYRIN IV PRN (09:03)
[2020-09-06] MEDS: CHLORHEX GL/ISOPROPYL ALCOHOL 960 APPL BTL TP SCH (10:50)
[2020-09-06] MEDS: POTASSIUM CHLORIDE 20 MEQ TABLET.SA PO SCH (10:51)
[2020-09-06] MEDS: COLLAGENASE CLOSTRIDIUM HIST. 30 APPL TUBE TP SCH (10:51)
--- NOTE | 2020-09-06 10:54 | PN ---
Subjective - Date and Time Seen Date: 09/06/20 Time: 10:53 Subjective Narrative: I was called overnight for low BP, so her cardizem was held. Early this morning, her HR was back around 130, so the cardizem was restarted. She feels like her legs are getting better, but are still significantly painful. Objective - Review of Systems Generalized/Overall Review: Reports: Weakness Respiratory: Denies: Shortness of Breath Cardiac: Reports: Edema Abdominal: Reports: No Symptoms Reported Genitourinary Symptoms: Reports: No Symptoms Reported Skin: Reports: Other - skin wounds - Vitals Vitals: Last Vital Signs Temp 37.2 C 09/06/20 06:20 Pulse 99 09/06/20 08:34 Resp 18 09/06/20 06:20 BP 113/75 09/06/20 08:34 Pulse Ox 95 09/06/20 06:20 - Abnormal Lab Findings Abnormal Lab Findings: Abnormal Lab Results 09/06/20 09/06/20 Range/Units 08:00 08:00 RBC 4.03 L (4.2-5.4) M/mm3 Hgb 12.0 L (12.5-16.0) gm/dL MCHC 31.5 L (32-36) g/dl RDW 17.9 H (11.5-14.0) % Immature Gran % (Auto) 0.80 H (0.001-0.429) % Immature Gran # (Auto) 0.08 H (0.000-0.0310) K/mm3 Lymphocytes % 13.7 L (20-51) % Monocytes % 14.7 H (0.0-9) % Neutrophils # 6.7 H (1.3-6.0) K/mm3 Lymphocytes # 1.33 L (1.5-3.5) k/mm3 Monocytes # 1.4 H (0.0-1.0) k/mm3 Sodium 131 L (132-142) mmol/L Potassium 4.8 H D (3.4-4.6) mmol/L BUN 25 H (3-23) mg/dL Est GFR (Non-Af Amer) 49 L (60-130) mL/min Total Bilirubin 2.0 H (0.0-1.1) mg/dL Alkaline Phosphatase 353 H (50-170) U/L Albumin 2.3 L (3.4-5.0) gm/dl - Exam Constitutional: Present: Alert, Cooperative, No distress, Looks Older than stated age Respiratory: Present: normal breath sounds Cardiovascular/Chest: Present: tachycardia - HR 104, irregularly irregular Abdomen: Present: soft, nontender Skin Exam: Present: other - bilateral lower legs wrapped in kerlex. mild 3X1 cm abrasion of right cheek. Neurologic: Present: alert Eye contact: Present: cooperative, good eye contact Cauti Physician Documentation - Urinary Catheter Management Urethral (Tsai) Date of Insertion: 09/03/20 Time of Insertion: 21:46 Assessment/Plan Plan Narrative: She was admitted for afib with RVR and significant cellulitis. Her lower extremities had significant necrotic tissue. Wound care consulted, and appreciate their assistance. continue wound treatment per their instructions, which includes daily santyl, and hibiclens with daily dressing changes. continue zosyn. WBC resolved, and was 9.7 today. Cardizem was added to her propranolol for management of HR. Her HR and BP was decreased overnight, so the cardizem was held. Her HR elevated to the 130's around 4 am today, and 30 mg po cardizem given. She hasn't required a cardizem drip, so she can transfer to the floor from SCU. Anticipate her heart rate will improve as her cellulitis is treated. She declines facility placement after DC. Her lower extremity wounds are significant and were potentially life threatening. I have concerns that something will similar if she returns to her same environment, however, she seems to have mental capacity to make her own decisions. - Problems/Diagnosis (1) Cellulitis Problem: Acute Qualifiers: Site of cellulitis: extremity Site of cellulitis of extremity: lower extremity Laterality: unspecified laterality Qualified Code(s): L03.119 - Cellulitis of unspecified part of limb (2) Atrial flutter with rapid ventricular response Problem: Acute (3) CHF (congestive heart failure) Problem: Acute Qualifiers: Heart failure type: high output Qualified Code(s): I50.83 - High output heart failure (4) Iron deficiency anemia Problem: Chronic Qualifiers: Iron deficiency anemia type: unspecified iron deficiency Qualified Code(s): D50.9 - Iron deficiency anemia, unspecified (5) Eschar of multiple sites Problem: Acute
[2020-09-07] MEDS: PIPERACILLIN SODIUM/TAZOBACTAM 3.375 GM in DEXTROSE 5 % IN WATER 100 ML IV SCH ×4 (02:05→10:10)
[2020-09-07] MEDS: ACETAMINOPHEN 500 MG TABLET PO PRN ×3 (02:14→20:51)
[2020-09-07] MEDS: DILTIAZEM HCL 30 MG TABLET PO SCH ×3 (04:52→20:48)
[2020-09-07] MEDS: FUROSEMIDE 20 MG TABLET PO SCH (08:39)
[2020-09-07] MEDS: POTASSIUM CHLORIDE 20 MEQ TABLET.SA PO SCH (08:39)
[2020-09-07] MEDS: APIXABAN 5 MG TABLET PO SCH ×2 (08:39→20:48)
[2020-09-07] MEDS: CHLORHEX GL/ISOPROPYL ALCOHOL 960 APPL BTL TP SCH (08:39)
[2020-09-07] MEDS: ERYTHROMYCIN BASE 3.5 APPL TUBE RIGHTEYE SCH ×3 (08:39→17:06)
[2020-09-07] MEDS: COLLAGENASE CLOSTRIDIUM HIST. 30 APPL TUBE TP SCH (08:40)
[2020-09-07] MEDS: GABAPENTIN 300 MG CAPSULE PO SCH ×3 (08:40→17:07)
[2020-09-07] MEDS: MORPHINE SULFATE 2 MG/ML DISP.SYRIN IV PRN (08:41)
--- NOTE | 2020-09-07 13:43 | PN ---
Subjective - Date and Time Seen Date: 09/07/20 Time: 11:30 Subjective Narrative: I was again called around 4 am for low blood pressure, and the cardizem was held. She feels like her pain is improving, and she's getting better overall. Her son has gotten her a walker, bedside commode, and an electric wheelchair for the home. Objective - Review of Systems Generalized/Overall Review: Denies: Fever Respiratory: Denies: Cough, Shortness of Breath Cardiac: Reports: Edema. Denies: Chest Pain Abdominal: Reports: No Symptoms Reported Genitourinary Symptoms: Reports: No Symptoms Reported Musculoskeletal Complaints: Reports: Other - lower leg pains Skin: Reports: Other - skin wounds - Vitals Vitals: Last Vital Signs Temp 36.6 C 09/07/20 10:00 Pulse 97 09/07/20 12:24 Resp 20 09/07/20 10:00 BP 104/66 09/07/20 12:24 Pulse Ox 97 09/07/20 10:00 - Exam Constitutional: Present: Alert, Cooperative, No distress Respiratory: Present: normal breath sounds, no respiratory distress Cardiovascular/Chest: Present: regular rate, rhythm Abdomen: Present: soft, nontender Extremity: Present: lower extremity edema - 2+ bilaterally Skin Exam: Present: other - bilateral lower legs wrapped in kerlex Cauti Physician Documentation - Urinary Catheter Management Urethral (Tsai) Date of Insertion: 09/03/20 Time of Insertion: 21:46 Assessment/Plan Plan Narrative: With improvement in her legs and her white blood cell count, will change from Zosyn to Zyvox. Her wound cultures grew multiple bacteriae. Recheck BMP in the morning. Potassium was slightly high yesterday at 4.7. Repeat pending for tomorrow. Her BP was again low, but her HR remains high. She is prescribed 160 mg pr opranolol twice daily. Cardizem was added, but her blood pressure is not tolerating the combination of both medicines together. Propranolol is not appropriately managing her heart rate on its own. Will change to 30 mg Cardizem 3 times daily. She sees Dory Talbto for cardiology in [place]. She declines facility placement after discharge and wants to return home. She reports her son has gotten her electric wheelchair, walker, and a bedside commode for home. - Problems/Diagnosis (1) Cellulitis Problem: Acute Qualifiers: Site of cellulitis: extremity Site of cellulitis of extremity: lower extremity Laterality: unspecified laterality Qualified Code(s): L03.119 - Cellulitis of unspecified part of limb (2) Atrial flutter with rapid ventricular response Problem: Acute (3) CHF (congestive heart failure) Problem: Acute Qualifiers: Heart failure type: high output Qualified Code(s): I50.83 - High output heart failure (4) Iron deficiency anemia Problem: Chronic Qualifiers: Iron deficiency anemia type: unspecified iron deficiency Qualified Code(s): D50.9 - Iron deficiency anemia, unspecified (5) Eschar of multiple sites Problem: Acute
[2020-09-07] MEDS: LINEZOLID 600 MG TABLET PO SCH (17:07)
[2020-09-08] MEDS: DILTIAZEM HCL 30 MG TABLET PO SCH ×3 (04:01→20:06)
[2020-09-08] MEDS: LINEZOLID 600 MG TABLET PO SCH ×2 (05:30→17:46)
[2020-09-08 06:19] LABS: Hemoglobin 11.2 gm/dL (12.5-16.0); Mean Cell Volume 93.6 fl (78-100); Mean Corpuscular Hemoglobin 29.9 pg (27-31); Mean Platelet Volume 8.1 fl (8-12.5); Neutrophil # 5.5 K/mm3 (1.3-6.0); Neutrophil % 64.1 % (42-75.0); Platelet Count 216 K/mm3 (150-450); Red Blood Count 3.74 M/mm3 (4.2-5.4); Red Cell Distribution Width 17.8 % (11.5-14.0); White Blood Count 8.5 K/mm3 (4.0-10.5)
[2020-09-08 06:20] LABS: Total Cells Counted 100
[2020-09-08 06:41] LABS: Albumin * 2.2 gm/dl (3.4-5.0); Bilirubin, Total 1.7 mg/dL (0.0-1.1); Ca. Corrected For Albumin 9.9 mg/dL (8.4-10.2); Calcium * 8.8 mg/dL (7.9-10.9); Carbon Dioxide 23.6 mmol/L (24-32.6); Potassium 5.6 mmol/L (3.4-4.6); Total Protein 6.7 gm/dL (6.2-8.2)
[2020-09-08 06:48] LABS: Basophil 1 % (0-1); Lymphocyte 13 % (20-51); Monocyte 18 % (0-9); Neutrophil 68 % (42-75); Neutrophil # 5.8 K/mm3 (1.3-6.0); Platelet Estimate Normal (NORMAL)
[2020-09-08 06:49] LABS: Anisocytosis Trace
[2020-09-08] MEDS: APIXABAN 5 MG TABLET PO SCH ×2 (08:42→20:06)
[2020-09-08] MEDS: CHLORHEX GL/ISOPROPYL ALCOHOL 960 APPL BTL TP SCH (08:42)
[2020-09-08] MEDS: ERYTHROMYCIN BASE 3.5 APPL TUBE RIGHTEYE SCH ×3 (08:42→20:05)
[2020-09-08] MEDS: POTASSIUM CHLORIDE 20 MEQ TABLET.SA PO SCH (08:43)
[2020-09-08] MEDS: GABAPENTIN 300 MG CAPSULE PO SCH ×3 (08:43→17:46)
[2020-09-08] MEDS: COLLAGENASE CLOSTRIDIUM HIST. 30 APPL TUBE TP SCH (08:44)
[2020-09-08] MEDS: ACETAMINOPHEN 500 MG TABLET PO PRN ×2 (08:48→22:22)
[2020-09-08] MEDS: FUROSEMIDE 20 MG TABLET PO SCH (10:59)
[2020-09-08] MEDS: LEVOFLOXACIN 500 MG TABLET PO SCH (14:56)
--- NOTE | 2020-09-08 16:58 | PN ---
Subjective - Date and Time Seen Date: 09/08/20 Time: 16:57 Subjective Narrative: Patient did well overnight without any new concerns, no acute events. Patient is feeling better and her white count continues to trend down. Patient was started on linezolid orally and her IV antibiotics were stopped. Patient's potassium was slightly elevated again so this was held. Patient sodium slightly low again but otherwise her labs have been stable. Her vital signs are also unstable adjust the Cardizem. She feels well and if her electrolytes look better in the morning than she can go home tomorrow. Objective - Review of Systems Generalized/Overall Review: Reports: Weakness. Denies: Chills, Fever EENTM: Reports: No Symptoms Reported Respiratory: Reports: No Symptoms Reported Cardiac: Denies: Chest Pain, Edema, Palpitations Abdominal: Reports: No Symptoms Reported Genitourinary Symptoms: Reports: No Symptoms Reported Neurological: Reports: No Symptoms Reported, Other - Leg infections feeling better per patient - Vitals Vitals: Last Vital Signs Temp 37 C 09/08/20 14:32 Pulse 83 09/08/20 14:32 Resp 16 09/08/20 14:32 BP 100/67 09/08/20 14:32 Pulse Ox 99 09/08/20 14:32 - Abnormal Lab Findings Abnormal Lab Findings: Abnormal Lab Results 09/08/20 09/08/20 Range/Units 06:12 06:12 RBC 3.74 L (4.2-5.4) M/mm3 Hgb 11.2 L (12.5-16.0) gm/dL Hct 35.0 L (37.0-47.0) % RDW 17.8 H (11.5-14.0) % Immature Gran % (Auto) 0.60 H (0.001-0.429) % Immature Gran # (Auto) 0.05 H (0.000-0.0310) K/mm3 Lymphocytes % 14.0 L (20-51) % Lymphocytes % (Manual) 13 L (20-51) % Monocytes % 19.3 H (0.0-9) % Monocytes % (Manual) 18 H (0-9) % Lymphocytes # 1.19 L (1.5-3.5) k/mm3 Lymphocytes # (Manual) 1.1 L (1.5-3.5) k/mm3 Monocytes # 1.6 H (0.0-1.0) k/mm3 Monocytes # (Manual) 1.5 H (0.0-1.0) k/mm3 Sodium 128 L (132-142) mmol/L Plasma Sodium 128 L (130-142) mmol/L Potassium 5.6 H (3.4-4.6) mmol/L Carbon Dioxide 23.6 L (24-32.6) mmol/L BUN/Creatinine Ratio 24.0 H (9.0-21.6) Total Bilirubin 1.7 H (0.0-1.1) mg/dL ALT 16 L (19-67) U/L Alkaline Phosphatase 345 H (50-170) U/L Albumin 2.2 L (3.4-5.0) gm/dl - Exam Constitutional: Present: Alert, Oriented x3, Cooperative ENT Exam: Present: hearing grossly normal Neck: Present: non-tender, supple Respiratory: Present: lungs clear, normal breath sounds Cardiovascular/Chest: Present: no murmur, irregularly irregular Abdomen: Present: soft, nontender, nondistended Extremity: Present: other - Legs dressed with clean bandages, no seeping Appearance: Present: appropriate appearance, impaired insight Eye contact: Present: cooperative, good eye contact Cauti Physician Documentation - Urinary Catheter Management Urethral (Tsai) Date of Insertion: 09/03/20 Time of Insertion: 21:46 Date of Removal: 09/08/20 Time of Removal: 07:49 Assessment/Plan Plan Narrative: Overall patient continues to improve, vital signs are stable and her white count is downtrending. Her heart rate and blood pressure is stable on just oral dilti azem with the propanolol discontinued. Patient is anticoagulated with Eliquis. She denies any chest pain or shortness of breath. She states that she feels well and feels like she is getting stronger. Infection appears to be doing much better as well. Dressings are clean and dry and intact, not done today to examine her legs but per nursing staff she is made significant improvement. She will need to continue with wound care after she is discharged from the hospital which can be arranged. Patient has little understanding of what caused her infection and so we went into this in detail this evening as far as her sedentary lifestyle and her pressure sores breaking open and getting infected. Explained to her that she may have a walker and an electrical chair at home waiting for but if she does not get up and move they will do any good. She again states that she does not want to go to any kind of short-term nursing facility which if she has a care at home to help her than that is fine but she will need to be checked on regularly and need to be up and be active which she states her understanding to. Her sodium is a little low, started her on salt tablets today. Her potassium is little high, held her potassium supplementation. Repeat CMP in the morning. If these improve then she likely will be discharged home tomorrow. We will repeat her CBC to make sure her white blood cell count continues to downtrend. Patient was started on Levaquin for anaerobic coverage to go with the linezolid. She will be discharged with both his antibiotics for an additional week. Overall patient is markedly improved from when she was admitted and should be stable to go home tomorrow barring any in foreseen circumstances. Nurse to call questions or concerns. - Problems/Diagnosis (1) Atrial flutter with rapid ventricular response Problem: Acute (2) CHF (congestive heart failure) Problem: Acute Qualifiers: Heart failure type: high output Qualified Code(s): I50.83 - High output heart failure (3) Eschar of multiple sites Problem: Acute (4) Purulent dermatitis Problem: Acute (5) Cellulitis Problem: Acute Qualifiers: Site of cellulitis: extremity Site of cellulitis of extremity: lower extremity Laterality: unspecified laterality Qualified Code(s): L03.119 - Cellulitis of unspecified part of limb (6) Hyponatremia Problem: Resolved (7) Hyperkalemia Problem: Resolved
[2020-09-08] MEDS: SODIUM CHLORIDE 1 GM TABLET PO SCH (17:46)
[2020-09-09] MEDS: LINEZOLID 600 MG TABLET PO SCH ×2 (05:03→18:01)
[2020-09-09] MEDS: DILTIAZEM HCL 30 MG TABLET PO SCH ×3 (05:03→20:02)
[2020-09-09 06:58] LABS: Hematocrit 34.3 % (37.0-47.0); Mean Corpuscular Hemoglobin 30.1 pg (27-31); Mean Corpuscular Hgb Conc 32.1 g/dl (32-36); Mean Platelet Volume 8.4 fl (8-12.5); Neutrophil # 5.1 K/mm3 (1.3-6.0); Neutrophil % 67.3 % (42-75.0); Platelet Count 216 K/mm3 (150-450); Red Blood Count 3.65 M/mm3 (4.2-5.4); Red Cell Distribution Width 17.6 % (11.5-14.0); White Blood Count 7.6 K/mm3 (4.0-10.5)
[2020-09-09 07:09] LABS: Albumin * 2.2 gm/dl (3.4-5.0); Anion Gap 11.2 mmol/L (6.8-13.8); BUN/Creatinine Ratio 24.7 (9.0-21.6); Bilirubin, Total 1.4 mg/dL (0.0-1.1); Ca. Corrected For Albumin 9.8 mg/dL (8.4-10.2); Calcium * 8.7 mg/dL (7.9-10.9); Potassium 5.2 mmol/L (3.4-4.6); Total Protein 6.8 gm/dL (6.2-8.2)
[2020-09-09] MEDS: ERYTHROMYCIN BASE 3.5 APPL TUBE RIGHTEYE SCH ×3 (08:11→18:00)
[2020-09-09] MEDS: APIXABAN 5 MG TABLET PO SCH ×2 (08:11→20:03)
[2020-09-09] MEDS: CHLORHEX GL/ISOPROPYL ALCOHOL 960 APPL BTL TP SCH (08:11)
[2020-09-09] MEDS: FUROSEMIDE 20 MG TABLET PO SCH (08:12)
[2020-09-09] MEDS: COLLAGENASE CLOSTRIDIUM HIST. 30 APPL TUBE TP SCH (08:12)
[2020-09-09] MEDS: GABAPENTIN 300 MG CAPSULE PO SCH ×3 (08:12→18:00)
[2020-09-09] MEDS: SODIUM CHLORIDE 1 GM TABLET PO SCH (08:12)
[2020-09-09] MEDS: LEVOFLOXACIN 500 MG TABLET PO SCH (11:10)
[2020-09-09] MEDS: ACETAMINOPHEN 500 MG TABLET PO PRN (13:04)
--- NOTE | 2020-09-09 16:32 | PN ---
Subjective - Date and Time Seen Date: 09/09/20 Time: 16:28 Subjective Narrative: Patient continues to improve daily. Comfortably laying in bed at this time. Continues with wound care and physical therapy. Feels her skin stronger. No acute events overnight vital signs are stable. Changes to her rate controlling medications working well. Patient potassium still mildly elevated at 5.2. Patient still with low sodium at 127. Home health has been established with wound care which she will be discharged home with. Objective - Review of Systems Generalized/Overall Review: Reports: No Symptoms Reported EENTM: Reports: No Symptoms Reported Respiratory: Reports: No Symptoms Reported Cardiac: Reports: No Symptoms Reported Abdominal: Reports: No Symptoms Reported Genitourinary Symptoms: Reports: No Symptoms Reported Musculoskeletal Complaints: Reports: Other - Leg pain, improving Neurological: Reports: No Symptoms Reported Skin: Reports: Other - Infections improving with less pain in her legs, dressings are clean dry and intact Endocrine: Reports: No Symptoms Reported - Vitals Vitals: Last Vital Signs Temp 36.6 C 09/09/20 14:20 Pulse 88 09/09/20 14:20 Resp 16 09/09/20 14:20 BP 93/57 09/09/20 14:20 Pulse Ox 98 09/09/20 14:20 - Abnormal Lab Findings Abnormal Lab Findings: Abnormal Lab Results 09/09/20 09/09/20 Range/Units 06:54 06:54 RBC 3.65 L (4.2-5.4) M/mm3 Hgb 11.0 L (12.5-16.0) gm/dL Hct 34.3 L (37.0-47.0) % RDW 17.6 H (11.5-14.0) % Immature Gran % (Auto) 0.90 H (0.001-0.429) % Immature Gran # (Auto) 0.07 H (0.000-0.0310) K/mm3 Lymphocytes % 15.8 L (20-51) % Monocytes % 14.4 H (0.0-9) % Lymphocytes # 1.21 L (1.5-3.5) k/mm3 Monocytes # 1.1 H (0.0-1.0) k/mm3 Sodium 127 L (132-142) mmol/L Plasma Sodium 127 L (130-142) mmol/L Potassium 5.2 H (3.4-4.6) mmol/L Chloride 96 L (97-106) mmol/L BUN 24 H (3-23) mg/dL BUN/Creatinine Ratio 24.7 H (9.0-21.6) Total Bilirubin 1.4 H (0.0-1.1) mg/dL ALT 17 L (19-67) U/L Alkaline Phosphatase 343 H (50-170) U/L Albumin 2.2 L (3.4-5.0) gm/dl - Exam Constitutional: Present: Alert, Oriented x3, Cooperative, Elderly ENT Exam: Present: hearing grossly normal Neck: Present: non-tender, supple Respiratory: Present: lungs clear, normal breath sounds Cardiovascular/Chest: Present: no murmur, irregularly irregular Abdomen: Present: soft, nontender, nondistended Extremity: Present: other - Legs are covered with clean dry bandage. Skin Exam: Present: normal color - To expose skin, warm/dry - To exposed skin Appearance: Present: appropriate appearance, appropriate insight Eye contact: Present: cooperative, good eye contact Thoughts: Present: normal thought pattern, normal mood /affect Cauti Physician Documentation - Urinary Catheter Management Urethral (Tsai) Date of Insertion: 09/03/20 Time of Insertion: 21:46 Date of Removal: 09/08/20 Time of Removal: 07:49 Assessment/Plan Plan Narrative: Plan will be for patient to likely discharge tomorrow pending her lab results. If her potassium normalizes and her sodium improves then she likely will be able to go. She will be discharged on 2 antibiotics for another week. She will continue with wound care that is set up through home health who will come for the first week and do daily dressing changes. She will then come to the wound center here as directed. She also get help with correction and physical therapy as well. A. fib is rate controlled, Eliquis is her anticoagulant. Stable and doing well. Vital signs are stable at this time. White count has trended downward and continues to trend downward. A.m. patient will follow with an additional 7 days of antibiotics on the linezolid and Levaquin. Repeat BMP and CBC in the morning Continue with diet. Nurse to call question concerns. - Problems/Diagnosis (1) Atrial flutter with rapid ventricular response Problem: Acute (2) CHF (congestive heart failure) Problem: Acute Qualifiers: Heart failure type: high output Qualified Code(s): I50.83 - High output heart failure (3) Eschar of multiple sites Problem: Acute (4) Purulent dermatitis Problem: Acute (5) Cellulitis Problem: Acute Qualifiers: Site of cellulitis: extremity Site of cellulitis of extremity: lower extremity Laterality: unspecified laterality Qualified Code(s): L03.119 - Cellulitis of unspecified part of limb (6) Hyponatremia Problem: Resolved (7) Hyperkalemia Problem: Resolved
[2020-09-10] MEDS: DILTIAZEM HCL 30 MG TABLET PO SCH ×2 (03:41→12:28)
[2020-09-10] MEDS: LINEZOLID 600 MG TABLET PO SCH (05:21)
[2020-09-10] MEDS: ACETAMINOPHEN 500 MG TABLET PO PRN (05:22)
[2020-09-10 06:35] LABS: Hematocrit 35.4 % (37.0-47.0); Hemoglobin 11.4 gm/dL (12.5-16.0); Mean Cell Volume 93.9 fl (78-100); Mean Corpuscular Hemoglobin 30.2 pg (27-31); Mean Corpuscular Hgb Conc 32.2 g/dl (32-36); Mean Platelet Volume 8.1 fl (8-12.5); Neutrophil # 5.2 K/mm3 (1.3-6.0); Neutrophil % 66.6 % (42-75.0); Platelet Count 227 K/mm3 (150-450); Red Blood Count 3.77 M/mm3 (4.2-5.4); Red Cell Distribution Width 17.8 % (11.5-14.0); White Blood Count 7.7 K/mm3 (4.0-10.5)
[2020-09-10 06:48] LABS: Anion Gap 10.4 mmol/L (6.8-13.8); BUN/Creatinine Ratio 23.1 (9.0-21.6); Calcium * 8.9 mg/dL (7.9-10.9); Carbon Dioxide 25.2 mmol/L (24-32.6); Estimated Creat Clear 53.7; Potassium 4.6 mmol/L (3.4-4.6)
[2020-09-10] MEDS: GABAPENTIN 300 MG CAPSULE PO SCH ×2 (09:10→12:30)
[2020-09-10] MEDS: FUROSEMIDE 20 MG TABLET PO SCH (09:11)
[2020-09-10] MEDS: APIXABAN 5 MG TABLET PO SCH (09:11)
[2020-09-10] MEDS: ERYTHROMYCIN BASE 3.5 APPL TUBE RIGHTEYE SCH ×2 (09:12→12:29)
[2020-09-10] MEDS: SODIUM CHLORIDE 1 GM TABLET PO SCH (09:13)
[2020-09-10] MEDS: CHLORHEX GL/ISOPROPYL ALCOHOL 960 APPL BTL TP SCH (10:38)
[2020-09-10] MEDS: COLLAGENASE CLOSTRIDIUM HIST. 30 APPL TUBE TP SCH (10:38)
[2020-09-10] MEDS: MORPHINE SULFATE 2 MG/ML DISP.SYRIN IV PRN (10:39)
[2020-09-10] MEDS: LEVOFLOXACIN 500 MG TABLET PO SCH (12:27)
--- NOTE | 2020-09-10 12:33 | DS ---
(1) Atrial flutter with rapid ventricular response Problem: Chronic (2) CHF (congestive heart failure) Problem: Acute Qualifiers: Heart failure type: high output Qualified Code(s): I50.83 - High output heart failure (3) Eschar of multiple sites Problem: Chronic (4) Purulent dermatitis Problem: Acute (5) Cellulitis Problem: Acute Qualifiers: Site of cellulitis: extremity Site of cellulitis of extremity: lower extremity Laterality: unspecified laterality Qualified Code(s): L03.119 - Cellulitis of unspecified part of limb (6) Hyponatremia Problem: Chronic (7) Hyperkalemia Problem: Resolved Date of Discharge:: 09/10/20 Hospital Course: 60-year-old female with history of A. fib admitted to the hospital due to leg pain. Patient with what appears to be chronic pressure ulcers that turned cellulitic and necrotic due to her immobility for months at a time. Initial w regla count was 12.7 that trended up to 14.9 before coming down to 7.7 on day of discharge. Wound care was consulted to address her legs with daily dressing changes. She was started on broad-spectrum antibiotics which will be narrowed down to ampicillin and Levaquin upon discharge. While in the ER she was in A. fib with RVR likely due to her infection. She was previously taken Inderal only for rate control but we are unable to get control of her heart rate with just this medicine so she was started on Cardizem as well. Her blood pressures were not tolerating Cardizem and Inderal together as of the Inderal was discontinued and we achieved good rate control with Cardizem 30 mg 3 times daily. Patient continues on Eliquis for DVT prophylaxis. Her vital signs of been stable with the changes made in her medications which she will be discharged home with. While here she has had wound care treating her chronic leg infections daily. She will require home health services including detention and physical therapy as well as wound care. retirement will be instructed to continue dressing changes daily. In a week she will start seeing the wound clinic here at the hospital. She has also been hyponatremic and hyperkalemic during her stay. Potassium was discontinued which she was on chronically from her warehouse worker. Potassium on discharge was 4.6. Her sodium was fluctuated during her time here and was 129 upon discharge. Initial sodium was 125. She was fluid restricted due to history of congestive heart failure with an elevated BNP at 6644 upon admission. This helped raise her sodium initially and got as high as 132 but then trended downward to 127 prior to starting her on sodium tablets. After 2 doses of sodium tablets her sodium improved to 129 which she will continued with upon discharge. She will need to follow up with her PCP in a week for repeat labs and surveillance of her infections. Her wound cultures grew out methicillin-resistant staph aureus as well as a couple anaerobic organisms which will be covered both by Levaquin and ampicillin that she is discharged home on. Potassium has been discontinued as well as Inderal. She can follow-up with her warehouse worker soon to discuss whether or not this is appropriate treatment for her. She will be sent home on Cardizem for rate control. Of note patient's home medical list included propafenone which she states she never started so this was not continued here. Patient will need to see her warehouse worker soon to discuss changes in her A. fib and CHF treatment plan. Patient is confined to her home due to severe chronic lower extremity infection, deconditioning, and her congestive heart failure as well as A. fib. The need for detention is to help manage her medications as well as to provide daily dressing changes for her lower extremities. The need for physical therapy is to help work on her deconditioning and to help with her gait instability and endurance. Wound care has also been ordered which will follow up with her at her home to help detention with her infections. After a week of home wound care she will start seeing in the hospital wound care clinic for continued treatment. The need for home health care skilled services is directly related to the time spent [id number] with this patient. Procedures Performed: none Results and Findings: Lab Pending Results 09/03/20 19:45: WBC 12.7 H, RBC 4.66, Hgb 14.2, Hct 44.0, MCV 94.4, MCH 30.5, MCHC 32.3, RDW 18.1 H, Plt Count 346, MPV 8.2, Neutrophils % (Manual) 75, Lymphocytes % (Manual) 11 L, Monocytes % (Manual) 14 H, Neutrophils # (Manual) 9.5 H, Lymphocytes # (Manual) 1.4 L, Monocytes # (Manual) 1.8 H, Platelet Es timate Normal, RBC Morphology Normal 09/03/20 19:45: Sodium 125 L, Plasma Sodium 125 L, Potassium 5.9 H D, Chloride 92 L, Carbon Dioxide 22.6 L, Anion Gap 16.3 H, BUN 44 H, Creatinine 1.76 H, Est GFR (Non-Af Amer) 31 L, BUN/Creatinine Ratio 25.0 H, Random Glucose 128 H, Calcium 9.3, Calcium Adj for Albumin 9.9, Total Bilirubin 2.1 H, AST 25, ALT 23, Alkaline Phosphatase 435 H, Troponin I Less than 0.017, B-Natriuretic Peptide 6644 H, Total Protein 8.7 H, Albumin 2.8 L, TSH 0.419 09/03/20 19:45: Lactic Acid, Venous 1.9 09/03/20 19:50: Urine Color Yellow, Urine Appearance Clear, Urine pH 5.5, Ur Specific Miles 1.025, Urine Protein 15 H, Urine Glucose (UA) Negative, Urine Ketones Negative, Urine Blood Negative, Urine Nitrate Negative, Urine Bilirubin Negative, Urine Urobilinogen 2.0 H, Ur Leukocyte Esterase Negative, Urine RBC None seen, Urine WBC None seen, Ur Epithelial Cells 0-5, Urine Bacteria None seen, Urine Culture Comments No culture indicated 09/03/20 21:31: SARS-CoV-2 (PCR) Not detected 09/03/20 22:00: ESR 65 H 09/03/20 22:00: C-Reactive Prot, Quant 5.6 H 09/04/20 06:40: WBC 14.9 H, RBC 3.93 L, Hgb 11.8 L, Hct 36.3 L, MCV 92.4, MCH 30.0, MCHC 32.5, RDW 17.9 H, Plt Count 255, MPV 8.6, Neutrophils % (Manual) 82 H, Lymphocytes % (Manual) 5 L, Monocytes % (Manual) 13 H, Neutrophils # (Manual) 12.2 H, Lymphocytes # (Manual) 0.7 L, Monocytes # (Manual) 1.9 H, Platelet Estimate Normal, RBC Morphology Normal 09/04/20 06:40: Sodium 132, Plasma Sodium 133, Potassium 3.6 D, Chloride 100, Carbon Dioxide 23.4 L, Anion Gap 12.2, BUN 40 H, Creatinine 1.59 H, Est GFR (Non-Af Amer) 35 L, BUN/Creatinine Ratio 25.2 H, Random Glucose 136 H, Calcium 8.5, Calcium Adj for Albumin 9.5, Total Bilirubin 2.5 H, AST 22, ALT 15 L, Alkaline Phosphatase 342 H, Total Protein 6.9, Albumin 2.3 L 09/04/20 17:15: Urine Color Yellow, Urine Appearance Cloudy, Urine pH 6.5, Ur Specific Miles 1.025, Urine Protein 100 H, Urine Glucose (UA) Negative, Urine Ketones 5, Urine Blood 250 H, Urine Nitrate Positive H, Urine Bilirubin 1 H, Urine Urobilinogen 2.0 H, Ur Leukocyte Esterase 25 H, Urine RBC >50 H, Urine WBC 0-5, Ur Epithelial Cells Trace, Uric Acid Crystals Few - 1+ H, Urine Bacteria Trace, Urine Comment Culture ordered L 09/05/20 09:33: WBC 8.4 D, RBC 3.88 L, Hgb 11.9 L, Hct 37.0, MCV 95.4, MCH 30.7, MCHC 32.2, RDW 18.4 H, Plt Count 241, MPV 8.0, Immature Gran % (Auto) 0.70 H, Immature Gran # (Auto) 0.06 H, Neutrophils % 66.0, Lymphocytes % 15.9 L, Monocytes % 16.2 H, Eosinophils % 1.0, Basophils % 0.2, Nucleated RBC % 0.0, Neutrophils # 5.6, Lymphocytes # 1.34 L, Monocytes # 1.4 H, Eosinophils # 0.1, Absolute Basophils 0.0 09/05/20 09:33: Sodium 131 L, Plasma Sodium 131, Potassium 3.3 L, Chloride 99, Carbon Dioxide 21.3 L, Anion Gap 14.0 H, BUN 28 H, Creatinine 1.21, Est GFR (Non-Af Amer) 48 L D, BUN/Creatinine Ratio 23.1 H, Random Glucose 100, Calcium 8.5 09/06/20 08:00: Sodium 131 L, Plasma Sodium 131, Potassium 4.8 H D, Chloride 99, Carbon Dioxide 24.3, Anion Gap 12.5, BUN 25 H, Creatinine 1.18, Est GFR (Non-Af Amer) 49 L, BUN/Creatinine Ratio 21.2, Random Glucose 101, Calcium 8.7, Calcium Adj for Albumin 9.7, Total Bilirubin 2.0 H, AST 22, ALT 20, Alkaline Phosphatase 353 H, Total Protein 7.3, Albumin 2.3 L 09/06/20 08:00: WBC 9.7, RBC 4.03 L, Hgb 12.0 L, Hct 38.1, MCV 94.5, MCH 29.8, MCHC 31.5 L, RDW 17.9 H, Plt Count 265, MPV 8.3, Immature Gran % (Auto) 0.80 H, Immature Gran # (Auto) 0.08 H, Neutrophils % 69.4, Lymphocytes % 13.7 L, Monocytes % 14.7 H, Eosinophils % 0.9, Basophils % 0.5, Nucleated RBC % 0.0, Neutrophils # 6.7 H, Lymphocytes # 1.33 L, Monocytes # 1.4 H, Eosinophils # 0.1, Absolute Basophils 0.1 09/08/20 06:12: WBC 8.5, RBC 3.74 L, Hgb 11.2 L, Hct 35.0 L, MCV 93.6, MCH 29.9, MCHC 32.0, RDW 17.8 H, Plt Count 216, MPV 8.1, Immature Gran % (Auto) 0.60 H, Immature Gran # (Auto) 0.05 H, Neutrophils % 64.1, Neutrophils % (Manual) 68, Lymphocytes % 14.0 L, Lymphocytes % (Manual) 13 L, Monocytes % 19.3 H, Monocytes % (Manual) 18 H, Eosinophils % 1.5, Basophils % 0.5, Basophils % (Manual) 1, Nucleated RBC % 0.0, Neutrophils # 5.5, Neutrophils # (Manual) 5.8, Lymphocytes # 1.19 L, Lymphocytes # (Manual) 1.1 L, Monocytes # 1.6 H, Monocytes # (Manual) 1.5 H, Eosinophils # 0.1, Basophils # (Manual) 0.1, Absolute Basophils 0.0, Platelet Estimate Normal, Anisocytosis Trace 09/08/20 06:12: Sodium 128 L, Plasma Sodium 128 L, Potassium 5.6 H, Chloride 97, Carbon Dioxide 23.6 L, Anion Gap 13.0, BUN 23, Creatinine 0.96, Est GFR (Non-Af Amer) 63 D, BUN/Creatinine Ratio 24.0 H, Random Glucose 109, Calcium 8.8, Calcium Adj for Albumin 9.9, Total Bilirubin 1.7 H, AST 19, ALT 16 L, Alkaline Phosphatase 345 H, Total Protein 6.7, Albumin 2.2 L 09/09/20 06:54: WBC 7.6, RBC 3.65 L, Hgb 11.0 L, Hct 34.3 L, MCV 94.0, MCH 30.1, MCHC 32.1, RDW 17.6 H, Plt Count 216, MPV 8.4, Immature Gran % (Auto) 0.90 H, Immature Gran # (Auto) 0.07 H, Neutrophils % 67.3, Lymphocytes % 15.8 L, Monocytes % 14.4 H, Eosinophils % 1.2, Basophils % 0.4, Nucleated RBC % 0.0, Neutrophils # 5.1, Lymphocytes # 1.21 L, Monocytes # 1.1 H, Eosinophils # 0.1, Absolute Basophils 0.0 09/09/20 06:54: Sodium 127 L, Plasma Sodium 127 L, Potassium 5.2 H, Chloride 96 L, Carbon Dioxide 25.0, Anion Gap 11.2, BUN 24 H, Creatinine 0.97, Est GFR (Non- Af Amer) 62, BUN/Creatinine Ratio 24.7 H, Random Glucose 101, Calcium 8.7, Calcium Adj for Albumin 9.8, Total Bilirubin 1.4 H, AST 20, ALT 17 L, Alkaline Phosphatase 343 H, Total Protein 6.8, Albumin 2.2 L 09/10/20 06:30: WBC 7.7, RBC 3.77 L, Hgb 11.4 L, Hct 35.4 L, MCV 93.9, MCH 30.2, MCHC 32.2, RDW 17.8 H, Plt Count 227, MPV 8.1, Immature Gran % (Auto) 0.90 H, Immature Gran # (Auto) 0.07 H, Neutrophils % 66.6, Lymphocytes % 16.5 L, Monocytes % 14.5 H, Eosinophils % 1.0, Basophils % 0.5, Nucleated RBC % 0.0, Neutrophils # 5.2, Lymphocytes # 1.28 L, Monocytes # 1.1 H, Eosinophils # 0.1, Absolute Basophils 0.0 09/10/20 06:30: Sodium 129 L, Plasma Sodium 129 L, Potassium 4.6, Chloride 98, Carbon Dioxide 25.2, Anion Gap 10.4, BUN 21, Creatinine 0.91, Est GFR (Non-Af Amer) 67, BUN/Creatinine Ratio 23.1 H, Random Glucose 94, Calcium 8.9 Discharge Location: Home Disposition: Home Health Service Home Health Agency: [facility] Home Health Condition: Fair Face to Face Encounter completed per [facility] Guidelines: Yes Discharge Activity: Activity as tolerated Discharge Diet: Low fat/chol Referrals: Vanessa Flannery APRN [Primary Care Provider] - One Week Additional Patient Instructions (free text): [facility] home health to see at home. [facility] [employer] [employer] to please fax discharge information to them, nursing please call report. [facility] Wound Center appointment on TuesdaySeptember 17 at 9:30am. Fax records from stay to PCP, Vanessa Flannery ([facility] in [place]). Prescriptions (Any new or edited meds): Ampicillin Trihydrate 500 mg PO BID #14 cap Transmission Status: Pending to [facility] Diltiazem HCl [Cardizem] 30 mg PO Q8H #90 tab Transmission Status: Pending to [facility] Levofloxacin [Levaquin] 500 mg PO DAILY@1100 #7 tab Transmission Status: Pending to [facility] Sodium Chloride 1 gm PO DAILY #30 tab Transmission Status: Pending to [facility] Complete Home Medications List: Complete Home Medication List: Apixaban [Eliquis] 5 mg PO BID 10/19/18 Gabapentin 300 mg PO TID 10/19/18 Furosemide [Lasix] 20 mg PO DAILY 01/02/20 Acetaminophen [Tylenol] 500 mg PO Q4H PRN tab 01/03/20 Ferrous Sulfate 650 mg PO DAILY 09/03/20 Loratadine 10 mg PO DAILY 09/03/20 Ampicillin Trihydrate 500 mg PO BID #14 cap 09/10/20 Chlorhex Gl/Isopropyl Alcohol [Hibiclens 4%] 1 appl TP DAILY btl 09/10/20 Diltiazem HCl [Cardizem] 30 mg PO Q8H #90 tab 09/10/20 Levofloxacin [Levaquin] 500 mg PO DAILY@1100 #7 tab 09/10/20 Sodium Chloride 1 gm PO DAILY #30 tab 09/10/20 Forms: Patient Portal Registration
[2020-09-10 14:58] VITALS: BP 87/53
== END 2020-09-10 14:29 | disposition home health service (06) | DRG 603 ==
LOC: ER 18:57 → SCU 23:20 → MS 09-06 14:06
PROVIDERS: ADMIT Family Medicine; ATTEND Family Medicine
DX: L08.0 Pyoderma; L03.115 Cellulitis of right lower limb; H10.89 Other conjunctivitis; E87.1 Hypo-osmolality and hyponatremia; D50.9 Iron deficiency anemia, unspecified; I48.91 Unspecified atrial fibrillation; I50.83 High output heart failure; L89.899 Pressure ulcer of other site, unspecified stage; E87.5 Hyperkalemia; L03.116 Cellulitis of left lower limb; I96 Gangrene, not elsewhere classified; B95.62 Methicillin resistant Staphylococcus aureus infection as the cause of diseases classified elsewhere; N17.9 Acute kidney failure, unspecified